=== PATIENT | female | born 1955 | race Caucasian/White ===

== ENCOUNTER 2016-07-24 07:39 | Emergency (ER) | payer MEDICAID ==
[~2016-07-24] VITALS: Ht 149.9 cm; Wt 68.0 kg
[~2016-07-24 07:39] MED LIST: ALPR1TAB2 PO; ATEN-42 PO
[2016-07-24] MEDS ORDERED: FAMOTIDINE 20MG/2ML VIAL IV STA (08:10)
[2016-07-24] MEDS ORDERED: SODIUM CHLORIDE 0.9% 1,000 ML IV ONE (08:10)
[2016-07-24] MEDS ORDERED: LORAZEPAM 2MG/ML CPJ IV ONE (08:15)
[2016-07-24 08:33] LABS: BASOPHILS % 1.1 % (0.0-2.0); EOSINOPHILS % 0.5 % (0.0-5.0); HEMATOCRIT. 39.7 % (36.0-48.0); HEMOGLOBIN. 13.6 g/dL (12.0-16.0); LYMPHOCYTES % 30.6 % (20.0-50.0); MEAN CORPUSCULAR HEMOGLOBIN 33.4 pg (28.0-32.0); MEAN CORPUSCULAR HGB CONC 34.2 g/dL (31.0-37.0); MEAN CORPUSCULAR VOLUME 97.6 fL (81.0-99.0); MEAN PLATELET VOLUME 8.4 fl (7.4-10.4); NEUTROPHILS % 56.8 % (40.0-76.0); PLATELET 109 x1000/uL (130-400); RED BLOOD CELL COUNT 4.07 mill/uL (4.2-5.4); RED CELL DISTRIBUTION WIDTH 14.8 % (11.6-14.6); WHITE BLOOD COUNT 3.1 x1000/uL (4.5-11.0)
[2016-07-24 08:39] LABS: INR 1.2; PROTHROMBIN TIME 12.4 sec
[2016-07-24 08:42] LABS: ALBUMIN 3.6 g/dL (3.4-5.0); CALCIUM 8.5 mg/dL (8.5-10.1); CHLORIDE 107 mEq/L (98-107); INDEX HEMOLYSI 1 (1-3); INDEX ICTERIC 1 (1-4); INDEX LIPEMIC 1 (1-3)
[2016-07-24 08:47] LABS: ALANINE AMINOTRANSFERASE 89 IU/L (13-61); ANION GAP 13; CARBON DIOXIDE 27 mEq/L (21-32); ETHANOL BLOOD 48 mg/dL; LIPASE 473 IU/L (73-393); UREA NITROGEN BLOOD 7 mg/dL (7-21); eGFR > 60 mL/min (>60)
[2016-07-24 08:50] LABS: NT PRO B-TYPE NATRIURETIC PEP 42 pg/mL (5-125); TROPONIN I < 0.02 ng/mL (0.00-0.04)
[2016-07-24 09:05] LABS: MAGNESIUM 2.3 mg/dL (1.8-2.4)
[2016-07-24 10:54] LABS: CLARITY URINE CLEAR (CLEAR); COLOR URINE YELLOW (YELLOW); GLUCOSE URINE NEGATIVE (NEGATIVE); KETONES URINE TRACE (NEGATIVE); LEUKOCYTE ESTERASE URINE 2+ (NEGATIVE); NITRITE URINE NEGATIVE (NEGATIVE); OCCULT BLOOD URINE TRACE (NEGATIVE); PH URINE 6.5 (4.5-8.0); PROTEIN URINE NEGATIVE (NEGATIVE); SPECIFIC GRAVITY URINE 1.015 (1.005-1.030)
[2016-07-24 11:13] LABS: *AMPHETAMINES SCREEN URINE NEGATIVE (NEGATIVE); *BARBITURATES SCREEN URINE NEGATIVE (NEGATIVE); *BENZODIAZEPINES SCREEN URINE PRESUMTIVE POSITIVE (NEGATIVE); *COCAINE SCREEN URINE PRESUMTIVE POSITIVE (NEGATIVE); CANNABINOID URINE SCREEN NEGATIVE (NEGATIVE); ECSTASY MDMA SCREEN URINE NEGATIVE (NEGATIVE); METHADONE URINE SCREEN NEGATIVE (NEGATIVE); OPIATES URINE SCREEN NEGATIVE (NEGATIVE); PHENCYCLIDINE URINE SCREEN NEGATIVE (NEGATIVE)
[2016-07-24 11:27] LABS: BACTERIA URINE NONE SEEN; RBC URINE 0-2 /hpf (0-2); SQUAMOUS EPITHELIAL CELL URINE FEW /lpf (RARE/1+)
[2016-07-24 13:50] VITALS: BP 150/73
== END 2016-07-24 14:15 | disposition home or self-care (01) ==
LOC: ER 07:50
DX: K85.10 Biliary acute pancreatitis without necrosis or infection (principal); F10.229 Alcohol dependence with intoxication, unspecified; Y90.2 Blood alcohol level of 40-59 mg/100 ml; I10 Essential (primary) hypertension; R07.89 Other chest pain; F14.229 Cocaine dependence with intoxication, unspecified; Z85.05 Personal history of malignant neoplasm of liver; Z88.0 Allergy status to penicillin; Z88.6 Allergy status to analgesic agent; Z91.041 Radiographic dye allergy status; Z88.5 Allergy status to narcotic agent; Z91.013 Allergy to seafood
CPT/HCPCS: 36415; 71010; 76705; 80053; 80305; 81001; 83690; 83735; 83880; 84484; 85025; 85610; 93005; 96361; 96374; 96375; 99285; G0482; J2060; J3490; J7030; Z7610

== ENCOUNTER 2016-07-26 06:30 | Emergency (ER) | payer MEDICAID ==
[~2016-07-26] VITALS: Ht 165.1 cm; Wt 63.0 kg
[2016-07-26] MEDS ORDERED: SODIUM CHLORIDE 0.9% 1,000 ML IV ONE (07:15)
[2016-07-26 07:41] LABS: BASOPHILS % 1.1 % (0.0-2.0); EOSINOPHILS % 0.3 % (0.0-5.0); HEMATOCRIT. 37.5 % (36.0-48.0); HEMOGLOBIN. 12.7 g/dL (12.0-16.0); LYMPHOCYTES % 27.8 % (20.0-50.0); MEAN CORPUSCULAR HEMOGLOBIN 33.3 pg (28.0-32.0); MEAN CORPUSCULAR HGB CONC 33.9 g/dL (31.0-37.0); MEAN CORPUSCULAR VOLUME 98.4 fL (81.0-99.0); MEAN PLATELET VOLUME 8.6 fl (7.4-10.4); MONOCYTES % 11.7 % (2.0-8.0); NEUTROPHILS % 59.1 % (40.0-76.0); PLATELET 97 x1000/uL (130-400); RED BLOOD CELL COUNT 3.81 mill/uL (4.2-5.4); RED CELL DISTRIBUTION WIDTH 14.8 % (11.6-14.6); WHITE BLOOD COUNT 3.1 x1000/uL (4.5-11.0)
[2016-07-26 07:46] LABS: CHLORIDE 109 mEq/L (98-107); INDEX HEMOLYSI 1 (1-3); INDEX ICTERIC 1 (1-4); INDEX LIPEMIC 1 (1-3)
[2016-07-26 07:48] LABS: INR 1.2; PARTIAL THROMBOPLASTIN TIME 26.2 sec (24.0-34.0); PROTHROMBIN TIME 12.5 sec
[2016-07-26 07:50] LABS: ALBUMIN 3.7 g/dL (3.4-5.0); ANION GAP 15; CALCIUM 8.4 mg/dL (8.5-10.1); CARBON DIOXIDE 22 mEq/L (21-32); ETHANOL BLOOD 23 mg/dL; LIPASE 419 IU/L (73-393); MAGNESIUM 2.2 mg/dL (1.8-2.4); UREA NITROGEN BLOOD 8 mg/dL (7-21)
[2016-07-26 07:55] LABS: ALANINE AMINOTRANSFERASE 91 IU/L (13-61); eGFR > 60 mL/min (>60)
[2016-07-26 07:57] LABS: TROPONIN I < 0.02 ng/mL (0.00-0.04)
[2016-07-26 08:34] LABS: *AMPHETAMINES SCREEN URINE NEGATIVE (NEGATIVE); *BARBITURATES SCREEN URINE NEGATIVE (NEGATIVE); *BENZODIAZEPINES SCREEN URINE PRESUMTIVE POSITIVE (NEGATIVE); *COCAINE SCREEN URINE PRESUMTIVE POSITIVE (NEGATIVE); ECSTASY MDMA SCREEN URINE NEGATIVE (NEGATIVE); METHADONE URINE SCREEN NEGATIVE (NEGATIVE)
[2016-07-26 08:35] LABS: CANNABINOID URINE SCREEN NEGATIVE (NEGATIVE); OPIATES URINE SCREEN NEGATIVE (NEGATIVE); PHENCYCLIDINE URINE SCREEN NEGATIVE (NEGATIVE)
[2016-07-26 09:24] VITALS: BP 144/87
== END 2016-07-26 09:58 | disposition home or self-care (01) ==
LOC: ER 06:50
DX: T40.5X1A Poisoning by cocaine, accidental (unintentional), initial encounter (principal); T51.91XA Toxic effect of unspecified alcohol, accidental (unintentional), initial encounter; G89.29 Other chronic pain; I10 Essential (primary) hypertension; F10.20 Alcohol dependence, uncomplicated; Z88.6 Allergy status to analgesic agent; Z88.0 Allergy status to penicillin; Z88.8 Allergy status to other drugs, medicaments and biological substances; Z79.1 Long term (current) use of non-steroidal anti-inflammatories (NSAID); Z79.899 Other long term (current) drug therapy; Z90.49 Acquired absence of other specified parts of digestive tract; Y92.89 Other specified places as the place of occurrence of the external cause
CPT/HCPCS: 36415; 71010; 80053; 80305; 83690; 83735; 84484; 85025; 85610; 85730; 93005; 99285; G0482; J7030; Z7610

== ENCOUNTER 2016-09-16 15:21 | Emergency (ER) | payer MEDICAID ==
[~2016-09-16] VITALS: Ht 149.9 cm; Wt 75.0 kg
[2016-09-16 15:45] VITALS: BP 148/77
== END 2016-09-17 01:15 | disposition left against medical advice (07) ==
LOC: ER 15:21
DX: Z04.8 Encounter for examination and observation for other specified reasons (principal); R11.2 Nausea with vomiting, unspecified; Z53.21 Procedure and treatment not carried out due to patient leaving prior to being seen by health care provider

== ENCOUNTER 2016-09-17 08:25 | Emergency (ER) | payer MEDICAID ==
[~2016-09-17] VITALS: Ht 149.9 cm; Wt 68.0 kg
[2016-09-17 08:37] VITALS: BP 158/61
[2016-09-17] MEDS ORDERED: ALPRAZOLAM 0.5 MG TABLET PO ONE (09:00)
== END 2016-09-17 09:46 | disposition home or self-care (01) ==
LOC: ER 09:39
DX: F41.9 Anxiety disorder, unspecified (principal); Z76.0 Encounter for issue of repeat prescription; R03.0 Elevated blood-pressure reading, without diagnosis of hypertension; F17.211 Nicotine dependence, cigarettes, in remission; Z88.8 Allergy status to other drugs, medicaments and biological substances; Z88.6 Allergy status to analgesic agent; Z91.041 Radiographic dye allergy status; Z91.013 Allergy to seafood; Z88.0 Allergy status to penicillin
CPT/HCPCS: 99283

== ENCOUNTER 2016-09-30 03:32 | Emergency (ER) | payer MEDICAID ==
[~2016-09-30] VITALS: Ht 162.6 cm; Wt 64.0 kg
[2016-09-30] MEDS ORDERED: MORPHINE SULFATE 4 MG/ML CPJ (NOT FOR IM USE) IV STA (04:49)
[2016-09-30] MEDS ORDERED: ONDANSETRON HCL 4MG/2ML VIAL IV STA (04:49)
[2016-09-30 05:13] LABS: BASOPHILS % 1.5 % (0.0-2.0); EOSINOPHILS % 0.5 % (0.0-5.0); HEMATOCRIT. 36.8 % (36.0-48.0); HEMOGLOBIN. 12.7 g/dL (12.0-16.0); LYMPHOCYTES % 34.5 % (20.0-50.0); MEAN CORPUSCULAR HEMOGLOBIN 32.9 pg (28.0-32.0); MEAN PLATELET VOLUME 8.8 fl (7.4-10.4); MONOCYTES % 9.3 % (2.0-8.0); NEUTROPHILS % 54.2 % (40.0-76.0); PLATELET 105 x1000/uL (130-400); RED BLOOD CELL COUNT 3.87 mill/uL (4.2-5.4); RED CELL DISTRIBUTION WIDTH 14.4 % (11.6-14.6)
[2016-09-30 05:24] LABS: INR 1.2; PARTIAL THROMBOPLASTIN TIME 28.3 sec (24.0-34.0); PROTHROMBIN TIME 12.7 sec
[2016-09-30] MEDS ORDERED: DIPHENHYDRAMINE 50MG/ML VIAL IV ONE (05:45)
[2016-09-30 05:47] LABS: CARBON DIOXIDE 22 mEq/L (21-32); CHLORIDE 105 mEq/L (98-107); ETHANOL BLOOD 92 mg/dL; TROPONIN I < 0.02 ng/mL (0.00-0.04)
[2016-09-30 05:51] LABS: CLARITY URINE CLEAR (CLEAR); COLOR URINE YELLOW (YELLOW); GLUCOSE URINE NEGATIVE (NEGATIVE); KETONES URINE NEGATIVE (NEGATIVE); LEUKOCYTE ESTERASE URINE NEGATIVE (NEGATIVE); NITRITE URINE NEGATIVE (NEGATIVE); OCCULT BLOOD URINE NEGATIVE (NEGATIVE); PH URINE 5.5 (4.5-8.0); PROTEIN URINE NEGATIVE (NEGATIVE); SPECIFIC GRAVITY URINE 1.004 (1.005-1.030); UROBILINOGEN URINE 0.2 E.U./dL (0.2-1.0)
[2016-09-30 05:59] LABS: *AMPHETAMINES SCREEN URINE NEGATIVE (NEGATIVE); *BARBITURATES SCREEN URINE NEGATIVE (NEGATIVE); *BENZODIAZEPINES SCREEN URINE PRESUMTIVE POSITIVE (NEGATIVE); *COCAINE SCREEN URINE PRESUMTIVE POSITIVE (NEGATIVE); CANNABINOID URINE SCREEN NEGATIVE (NEGATIVE); METHADONE URINE SCREEN NEGATIVE (NEGATIVE); OPIATES URINE SCREEN NEGATIVE (NEGATIVE); PHENCYCLIDINE URINE SCREEN NEGATIVE (NEGATIVE)
[2016-09-30 07:22] VITALS: BP 128/96
== END 2016-09-30 09:36 | disposition home or self-care (01) ==
LOC: ER 03:36
DX: T40.5X1A Poisoning by cocaine, accidental (unintentional), initial encounter (principal); F14.188 Cocaine abuse with other cocaine-induced disorder; Y92.89 Other specified places as the place of occurrence of the external cause; I10 Essential (primary) hypertension; I25.119 Atherosclerotic heart disease of native coronary artery with unspecified angina pectoris; Z95.5 Presence of coronary angioplasty implant and graft; F17.210 Nicotine dependence, cigarettes, uncomplicated; Z88.6 Allergy status to analgesic agent; Z88.8 Allergy status to other drugs, medicaments and biological substances; Z88.0 Allergy status to penicillin; Z98.890 Other specified postprocedural states; Z91.041 Radiographic dye allergy status; Z88.5 Allergy status to narcotic agent; Z91.013 Allergy to seafood
CPT/HCPCS: 36415; 71010; 80053; 80305; 81003; 83690; 83880; 84484; 85025; 85610; 85730; 93005; 96374; 96375; 99285; G0482; J1200; J2270; J2405; Z7610

== ENCOUNTER 2016-10-16 15:07 | Emergency (ER) | payer MEDICAID ==
[~2016-10-16] VITALS: Ht 149.9 cm; Wt 61.0 kg
[2016-10-16] MEDS ORDERED: LORAZEPAM 1MG TABLET PO ONE (15:45)
[2016-10-16 16:06] LABS: CHLORIDE 107 mEq/L (98-107)
[2016-10-16 16:07] LABS: BASOPHILS % 0.9 % (0.0-2.0); EOSINOPHILS % 0.6 % (0.0-5.0); HEMATOCRIT. 38.4 % (36.0-48.0); INR 1.2; LYMPHOCYTES % 43.9 % (20.0-50.0); MEAN CORPUSCULAR HEMOGLOBIN 32.8 pg (28.0-32.0); MEAN PLATELET VOLUME 9.5 fl (7.4-10.4); MONOCYTES % 9.5 % (2.0-8.0); NEUTROPHILS % 45.1 % (40.0-76.0); PLATELET 99 x1000/uL (130-400); PROTHROMBIN TIME 12.7 sec; RED BLOOD CELL COUNT 3.96 mill/uL (4.2-5.4); RED CELL DISTRIBUTION WIDTH 15.3 % (11.6-14.6)
[2016-10-16 16:16] LABS: CARBON DIOXIDE 22 mEq/L (21-32); TROPONIN I < 0.02 ng/mL (0.00-0.04)
[2016-10-16 18:50] VITALS: BP 140/65
== END 2016-10-16 19:20 | disposition left against medical advice (07) ==
LOC: ER 15:25
DX: R07.89 Other chest pain (principal); I10 Essential (primary) hypertension; G40.909 Epilepsy, unspecified, not intractable, without status epilepticus; Z88.0 Allergy status to penicillin; Z88.6 Allergy status to analgesic agent; Z91.041 Radiographic dye allergy status; Z91.013 Allergy to seafood
CPT/HCPCS: 36415; 71010; 80053; 84484; 85025; 85610; 93005; 99285; Z7610

== ENCOUNTER 2016-11-02 23:35 | Emergency (ER) | payer MEDICAID ==
[~2016-11-02] VITALS: Ht 157.5 cm; Wt 66.0 kg
[2016-11-03] MEDS ORDERED: LORAZEPAM 2MG/ML CPJ IV ONE (00:30)
[2016-11-03 00:39] LABS: BASOPHILS % 0.5 % (0.0-2.0); EOSINOPHILS % 0.5 % (0.0-5.0); HEMATOCRIT. 41.4 % (36.0-48.0); HEMOGLOBIN. 14.2 g/dL (12.0-16.0); LYMPHOCYTES % 18.9 % (20.0-50.0); MEAN CORPUSCULAR HEMOGLOBIN 33.2 pg (28.0-32.0); MEAN CORPUSCULAR VOLUME 96.5 fL (81.0-99.0); MEAN PLATELET VOLUME 9.3 fl (7.4-10.4); MONOCYTES % 10.8 % (2.0-8.0); NEUTROPHILS % 69.3 % (40.0-76.0); PLATELET 100 x1000/uL (130-400); RED BLOOD CELL COUNT 4.29 mill/uL (4.2-5.4); RED CELL DISTRIBUTION WIDTH 15.1 % (11.6-14.6)
[2016-11-03 00:51] LABS: CLARITY URINE CLEAR (CLEAR); COLOR URINE YELLOW (YELLOW); GLUCOSE URINE NEGATIVE (NEGATIVE); KETONES URINE NEGATIVE (NEGATIVE); LEUKOCYTE ESTERASE URINE NEGATIVE (NEGATIVE); NITRITE URINE NEGATIVE (NEGATIVE); OCCULT BLOOD URINE NEGATIVE (NEGATIVE); PROTEIN URINE NEGATIVE (NEGATIVE); SPECIFIC GRAVITY URINE 1.006 (1.005-1.030); UROBILINOGEN URINE 0.2 E.U./dL (0.2-1.0)
[2016-11-03 00:57] LABS: CARBON DIOXIDE 21 mEq/L (21-32); CHLORIDE 109 mEq/L (98-107); TROPONIN I < 0.02 ng/mL (0.00-0.04)
[2016-11-03 01:08] LABS: *AMPHETAMINES SCREEN URINE NEGATIVE (NEGATIVE); *BARBITURATES SCREEN URINE NEGATIVE (NEGATIVE); *BENZODIAZEPINES SCREEN URINE PRESUMTIVE POSITIVE (NEGATIVE); *COCAINE SCREEN URINE PRESUMTIVE POSITIVE (NEGATIVE); CANNABINOID URINE SCREEN NEGATIVE (NEGATIVE); METHADONE URINE SCREEN NEGATIVE (NEGATIVE); OPIATES URINE SCREEN NEGATIVE (NEGATIVE); PHENCYCLIDINE URINE SCREEN NEGATIVE (NEGATIVE)
[2016-11-03] MEDS ORDERED: ALPRAZOLAM 0.5 MG TABLET PO ONE (05:00)
[2016-11-03 05:14] VITALS: BP 138/84
== END 2016-11-03 06:37 | disposition home or self-care (01) ==
LOC: ER 23:35
DX: R07.2 Precordial pain (principal); F14.10 Cocaine abuse, uncomplicated; K85.90 Acute pancreatitis without necrosis or infection, unspecified; I10 Essential (primary) hypertension; F17.200 Nicotine dependence, unspecified, uncomplicated; Z88.0 Allergy status to penicillin; Z88.6 Allergy status to analgesic agent; Z88.8 Allergy status to other drugs, medicaments and biological substances
CPT/HCPCS: 36415; 71010; 80053; 80305; 81003; 84484; 85025; 93005; 96374; 99285; J2060; J7030; Z7610

== ENCOUNTER 2016-11-04 01:56 | Inpatient (IN) | payer MEDICAID ==
[~2016-11-04] VITALS: Ht 165.1 cm; Wt 73.0 kg
[2016-11-04] MEDS ORDERED: SODIUM CHLORIDE 0.9% 1,000 ML IV ONE ×2 (02:53→06:30)
[2016-11-04] MEDS ORDERED: NITROGLYCERIN OINT 1GM/INCH UDPKT TD ONE (03:00)
[2016-11-04] MEDS ORDERED: LABETALOL HCL 20MG/4ML CARPUJECT IV ONE (03:00)
[2016-11-04] MEDS ORDERED: LORAZEPAM 2MG/ML CPJ IV ONE (03:00)
[2016-11-04] MEDS ORDERED: ASPIRIN 81MG TABLET PO ONE (03:00)
[2016-11-04 03:34] LABS: BASOPHILS % 0.8 % (0.0-2.0); EOSINOPHILS % 0.5 % (0.0-5.0); HEMATOCRIT. 37.9 % (36.0-48.0); HEMOGLOBIN. 13.1 g/dL (12.0-16.0); LYMPHOCYTES % 36.4 % (20.0-50.0); MEAN CORPUSCULAR HEMOGLOBIN 33.2 pg (28.0-32.0); MEAN CORPUSCULAR VOLUME 96.5 fL (81.0-99.0); MEAN PLATELET VOLUME 9.4 fl (7.4-10.4); MONOCYTES % 11.4 % (2.0-8.0); NEUTROPHILS % 50.9 % (40.0-76.0); PLATELET 86 x1000/uL (130-400); RED BLOOD CELL COUNT 3.93 mill/uL (4.2-5.4); RED CELL DISTRIBUTION WIDTH 15.3 % (11.6-14.6)
[2016-11-04 03:43] LABS: CARBON DIOXIDE 23 mEq/L (21-32); CHLORIDE 109 mEq/L (98-107); ETHANOL BLOOD 16 mg/dL; TROPONIN I < 0.02 ng/mL (0.00-0.04)
[2016-11-04] MEDS ORDERED: LABETALOL 5MG/ML SYR 20 MG/4 ML SYRINGE IV NR (03:46)
[2016-11-04 03:56] LABS: CLARITY URINE CLEAR (CLEAR); COLOR URINE YELLOW (YELLOW); GLUCOSE URINE NEGATIVE (NEGATIVE); KETONES URINE NEGATIVE (NEGATIVE); LEUKOCYTE ESTERASE URINE NEGATIVE (NEGATIVE); NITRITE URINE NEGATIVE (NEGATIVE); OCCULT BLOOD URINE NEGATIVE (NEGATIVE); PH URINE 5.5 (4.5-8.0); PROTEIN URINE NEGATIVE (NEGATIVE); SPECIFIC GRAVITY URINE 1.007 (1.005-1.030)
[2016-11-04 04:02] LABS: INR 1.2; PARTIAL THROMBOPLASTIN TIME 27.4 sec (24.0-34.0); PROTHROMBIN TIME 12.7 sec
[2016-11-04 04:24] LABS: *AMPHETAMINES SCREEN URINE NEGATIVE (NEGATIVE); *BARBITURATES SCREEN URINE NEGATIVE (NEGATIVE); *BENZODIAZEPINES SCREEN URINE PRESUMTIVE POSITIVE (NEGATIVE); *COCAINE SCREEN URINE PRESUMTIVE POSITIVE (NEGATIVE); CANNABINOID URINE SCREEN NEGATIVE (NEGATIVE); METHADONE URINE SCREEN NEGATIVE (NEGATIVE); OPIATES URINE SCREEN NEGATIVE (NEGATIVE); PHENCYCLIDINE URINE SCREEN NEGATIVE (NEGATIVE)
[2016-11-04] MEDS: KETOROLAC 30MG/ML VIAL IV STA (06:30)
[2016-11-04] MEDS ORDERED: MORPHINE SULFATE 2 MG/ML CPJ (NOT FOR IM USE) IV STA ×2 (06:48→07:40)
[2016-11-04 09:00] VITALS: BP 145/85
[2016-11-04 12:35] VITALS: BP 136/87
[2016-11-04] MEDS ORDERED: ONDANSETRON HCL 4MG/2ML VIAL IV PRN (15:00)
[2016-11-04] MEDS: HYDROCODONE/ACETAMINOPHEN 5/325MG TABLET PO PRN ×2 (17:02→22:08)
[2016-11-04] MEDS ORDERED: ALPRAZOLAM 0.5 MG TABLET PO PRN (17:15)
[2016-11-04 17:20] VITALS: BP 114/72
[2016-11-04 20:00] VITALS: BP 91/55
[2016-11-04] MEDS: METOPROLOL TARTRATE 25MG TABLET PO SCH (21:00)
[2016-11-05] VITALS: BP 98/60
[2016-11-05 04:00] VITALS: BP 132/80
[2016-11-05 08:00] VITALS: BP 127/75
[2016-11-05] MEDS: METOPROLOL TARTRATE 25MG TABLET PO SCH (08:22)
[2016-11-05] MEDS: HYDROCODONE/ACETAMINOPHEN 5/325MG TABLET PO PRN (09:53)
[2016-11-05 11:36] VITALS: BP 132/89
== END 2016-11-05 12:05 | disposition home or self-care (01) | DRG 203 ==
LOC: ER 01:56 → 7WST 05:20 → EDBEDREQ 05:25 → ENRESERV 07:02
PROVIDERS: ADMIT Internal Medicine; ATTEND Internal Medicine
DX: R07.89 Other chest pain (principal); C22.0 Liver cell carcinoma; K74.60 Unspecified cirrhosis of liver; I10 Essential (primary) hypertension; K21.9 Gastro-esophageal reflux disease without esophagitis; F32.9 Major depressive disorder, single episode, unspecified; F41.9 Anxiety disorder, unspecified; R00.2 Palpitations; R74.0 Nonspecific elevation of levels of transaminase and lactic acid dehydrogenase [LDH]; B19.20 Unspecified viral hepatitis C without hepatic coma; F10.10 Alcohol abuse, uncomplicated; F14.10 Cocaine abuse, uncomplicated; F17.210 Nicotine dependence, cigarettes, uncomplicated; I16.0 Hypertensive urgency; Z82.49 Family history of ischemic heart disease and other diseases of the circulatory system; Z91.19 Patient's noncompliance with other medical treatment and regimen; Z88.0 Allergy status to penicillin; Z88.8 Allergy status to other drugs, medicaments and biological substances; Z88.6 Allergy status to analgesic agent; Z91.041 Radiographic dye allergy status; Z92.21 Personal history of antineoplastic chemotherapy; Z92.3 Personal history of irradiation
CPT/HCPCS: 36415; 71010; 80053; 80305; 81003; 83605; 83690; 83880; 84484; 85025; 85610; 85730; 93005; 93306; 96361; 96374; 96375; 99291; G0482; J1885; J2060; J2270; J3490; J7030

== ENCOUNTER 2016-11-13 00:39 | Emergency (ER) | payer MEDICAID ==
[~2016-11-13] VITALS: Ht 162.6 cm; Wt 61.0 kg
[2016-11-13] MEDS ORDERED: SODIUM CHLORIDE 0.9% 1,000 ML IV ONE (01:10)
[2016-11-13] MEDS ORDERED: ONDANSETRON HCL 4MG/2ML VIAL IV STA (01:10)
[2016-11-13] MEDS ORDERED: FENTANYL CITRATE/PF 50MCG/ML 2ML VIAL IV ONE (01:15)
[2016-11-13 01:39] LABS: BASOPHILS % 1.1 % (0.0-2.0); EOSINOPHILS % 0.7 % (0.0-5.0); HEMATOCRIT. 38.4 % (36.0-48.0); LYMPHOCYTES % 41.2 % (20.0-50.0); MEAN CORPUSCULAR HEMOGLOBIN 32.9 pg (28.0-32.0); MEAN CORPUSCULAR VOLUME 97.3 fL (81.0-99.0); MEAN PLATELET VOLUME 8.9 fl (7.4-10.4); MONOCYTES % 9.8 % (2.0-8.0); NEUTROPHILS % 47.2 % (40.0-76.0); PLATELET 114 x1000/uL (130-400); RED BLOOD CELL COUNT 3.95 mill/uL (4.2-5.4); RED CELL DISTRIBUTION WIDTH 15.2 % (11.6-14.6)
[2016-11-13 01:46] LABS: D-DIMER 0.59 mg/L FEU (<0.50); INR 1.2; PROTHROMBIN TIME 12.7 sec
[2016-11-13 01:54] LABS: CARBON DIOXIDE 23 mEq/L (21-32); CHLORIDE 107 mEq/L (98-107); ETHANOL BLOOD 83 mg/dL; TROPONIN I < 0.02 ng/mL (0.00-0.04)
[2016-11-13 06:54] VITALS: BP 128/70
== END 2016-11-13 07:31 | disposition home or self-care (01) ==
LOC: ER 00:49
DX: F14.10 Cocaine abuse, uncomplicated (principal); R07.89 Other chest pain; D72.819 Decreased white blood cell count, unspecified; D69.6 Thrombocytopenia, unspecified; R74.0 Nonspecific elevation of levels of transaminase and lactic acid dehydrogenase [LDH]; R00.0 Tachycardia, unspecified; I10 Essential (primary) hypertension; Z85.05 Personal history of malignant neoplasm of liver; Z88.6 Allergy status to analgesic agent; Z91.041 Radiographic dye allergy status; Z88.5 Allergy status to narcotic agent; Z88.0 Allergy status to penicillin; Z91.013 Allergy to seafood
CPT/HCPCS: 36415; 71010; 78582; 80053; 83880; 84484; 85025; 85379; 85610; 93005; 99285; A9540; A9558; G0482; J7030; Z7610

== ENCOUNTER 2017-01-12 00:21 | Inpatient (IN) | payer MEDICAID ==
[~2017-01-12] VITALS: Ht 149.9 cm; Wt 62.6 kg
[2017-01-12] MEDS ORDERED: ONDANSETRON HCL 4MG/2ML VIAL IV STA (01:12)
[2017-01-12] MEDS ORDERED: NITROGLYCERIN OINT 1GM/INCH UDPKT TD STA (01:12)
[2017-01-12] MEDS ORDERED: MORPHINE SULFATE 4 MG/ML CPJ (NOT FOR IM USE) IV STA (01:12)
[2017-01-12 02:15] LABS: BASOPHILS % 0.7 % (0.0-2.0); EOSINOPHILS % 0.3 % (0.0-5.0); HEMOGLOBIN. 12.6 g/dL (12.0-16.0); LYMPHOCYTES % 30.5 % (20.0-50.0); MEAN CORPUSCULAR HEMOGLOBIN 33.1 pg (28.0-32.0); MEAN CORPUSCULAR VOLUME 97.3 fL (81.0-99.0); MEAN PLATELET VOLUME 8.9 fl (7.4-10.4); MONOCYTES % 9.6 % (2.0-8.0); NEUTROPHILS % 58.9 % (40.0-76.0); PLATELET 95 x1000/uL (130-400); RED CELL DISTRIBUTION WIDTH 15.8 % (11.6-14.6)
[2017-01-12 02:25] LABS: CARBON DIOXIDE 25 mEq/L (21-32); CHLORIDE 108 mEq/L (98-107); TROPONIN I < 0.02 ng/mL (0.00-0.04)
[2017-01-12 03:29] LABS: *AMPHETAMINES SCREEN URINE NEGATIVE (NEGATIVE); *BARBITURATES SCREEN URINE NEGATIVE (NEGATIVE); *BENZODIAZEPINES SCREEN URINE PRESUMTIVE POSITIVE (NEGATIVE); CANNABINOID URINE SCREEN NEGATIVE (NEGATIVE); METHADONE URINE SCREEN NEGATIVE (NEGATIVE); OPIATES URINE SCREEN NEGATIVE (NEGATIVE); PHENCYCLIDINE URINE SCREEN NEGATIVE (NEGATIVE)
[2017-01-12 04:36] LABS: *COCAINE SCREEN URINE PRESUMTIVE POSITIVE (NEGATIVE)
[2017-01-12 06:40] VITALS: BP 139/79
[2017-01-12] MEDS ORDERED: GABA-290 PO (06:51)
[2017-01-12] MEDS ORDERED: FAMO40TA70 PO (06:51)
[2017-01-12 08:00] VITALS: BP 100/60
[2017-01-12] MEDS ORDERED: OMEP20TA15 PO (09:36)
[2017-01-12] MEDS ORDERED: DOCUSATE SODIUM 100MG CAPSULE PO PRN (10:00)
[2017-01-12] MEDS: ATENOLOL 50 MG TABLET PO SCH (10:00)
[2017-01-12] MEDS ORDERED: ACETAMINOPHEN 325MG TABLET PO PRN (10:00)
[2017-01-12] MEDS ORDERED: CLONIDINE 0.1MG TABLET PO PRN (10:00)
[2017-01-12] MEDS ORDERED: IPRATROPIUM/ALBUTEROL 0.5-3(2.5)MG/3ML NEB INH PRN (10:00)
[2017-01-12] MEDS ORDERED: ONDANSETRON HCL 4MG/2ML VIAL IV PRN (10:00)
[2017-01-12] MEDS ORDERED: HYDROCODONE/ACETAMINOPHEN 5/325MG TABLET PO PRN (10:00)
[2017-01-12] MEDS ORDERED: LORAZEPAM 1MG TABLET PO PRN (10:00)
[2017-01-12] MEDS ORDERED: ALPRAZOLAM 0.5 MG TABLET PO SCH (10:30)
[2017-01-12 12:00] VITALS: BP 98/61
[2017-01-12] MEDS ORDERED: MVI, ADULT NO.1 10 ML, FOLIC ACID 1 MG, THIAMINE HCL 100 MG in SODIUM CHLORIDE 0.9% 1,0... IV NR ×4 (12:00)
[2017-01-12] MEDS: OMEPRAZOLE 20MG CAPSULE EXTENDED RELEASE PO SCH ×2 (12:40→20:28)
[2017-01-12] MEDS: ALPRAZOLAM 0.5 MG TABLET PO SCH ×2 (13:50→22:17)
[2017-01-12 15:20] LABS: CREATINE KINASE 64 IU/L (26-192); TROPONIN I < 0.02 ng/mL (0.00-0.04)
[2017-01-12 16:00] VITALS: BP 129/81
[2017-01-12] MEDS: MORPHINE SULFATE 2 MG/ML CPJ (NOT FOR IM USE) IV PRN ×2 (16:10→22:23)
[2017-01-12] MEDS ORDERED: OMEPRAZOLE 20MG CAPSULE EXTENDED RELEASE PO SCH (17:40)
[2017-01-12 19:15] LABS: CLARITY URINE CLEAR (CLEAR); COLOR URINE DARK YELLOW (YELLOW); GLUCOSE URINE NEGATIVE (NEGATIVE); KETONES URINE NEGATIVE (NEGATIVE); LEUKOCYTE ESTERASE URINE 1+ (NEGATIVE); NITRITE URINE NEGATIVE (NEGATIVE); OCCULT BLOOD URINE NEGATIVE (NEGATIVE); PH URINE 5.5 (4.5-8.0); PROTEIN URINE NEGATIVE (NEGATIVE); SPECIFIC GRAVITY URINE 1.017 (1.005-1.030)
[2017-01-12 20:00] VITALS: BP 124/69
[2017-01-12] MEDS: FAMOTIDINE 20MG TABLET PO SCH (20:27)
[2017-01-12] MEDS: HYDROCODONE/ACETAMINOPHEN 10/325MG TABLET PO PRN (20:40)
[2017-01-12 23:30] LABS: CREATINE KINASE 61 IU/L (26-192); TROPONIN I < 0.02 ng/mL (0.00-0.04)
[2017-01-13] VITALS: BP 119/66
[2017-01-13 04:00] VITALS: BP 103/54
[2017-01-13 05:16] LABS: HEMATOCRIT. 36.1 % (36.0-48.0); HEMOGLOBIN. 12.1 g/dL (12.0-16.0); MEAN CORPUSCULAR HEMOGLOBIN 32.9 pg (28.0-32.0); MEAN CORPUSCULAR VOLUME 97.9 fL (81.0-99.0); MEAN PLATELET VOLUME 9.2 fl (7.4-10.4); PLATELET 80 x1000/uL (130-400); RED BLOOD CELL COUNT 3.69 mill/uL (4.2-5.4); RED CELL DISTRIBUTION WIDTH 15.6 % (11.6-14.6)
[2017-01-13] MEDS: ALPRAZOLAM 0.5 MG TABLET PO SCH ×3 (05:32→21:39)
[2017-01-13 06:00] LABS: CARBON DIOXIDE 26 mEq/L (21-32); CHLORIDE 109 mEq/L (98-107)
[2017-01-13 06:12] LABS: HDL CHOLESTEROL 41 mg/dL (40-59); LDL CHOLESTEROL 87 mg/dL (5-100)
[2017-01-13 08:11] VITALS: BP 127/74
[2017-01-13] MEDS: OMEPRAZOLE 20MG CAPSULE EXTENDED RELEASE PO SCH ×2 (08:47→21:38)
[2017-01-13] MEDS: ATENOLOL 50 MG TABLET PO SCH (08:47)
[2017-01-13] MEDS: HYDROCODONE/ACETAMINOPHEN 10/325MG TABLET PO PRN ×3 (08:48→21:39)
[2017-01-13 09:14] LABS: BG BASE EXCESS 1.8 mmol/L (-2.0-2.0); BG CARBOXYHEMOGLOBIN 1.4 % (0.5-1.5); BG DEOXYHEMOGLOBIN 3.2 % (0.0-5.0); BG FRACTION INSPIRED OXYGEN 21; BG HCO3 ACT 26.3 mmol/L (22.0-26.0); BG METHEMOGLOBIN 0.2 % (0.0-1.5); BG OXYGEN SATURATION 96.7 % (92.0-98.5); BG OXYHEMOGLOBIN 95.2 % (94.0-97.0); BG PH 7.425 (7.350-7.450); BG PO2 88.2 mmHg (75.0-100.0); BG SAMPLE SITE RIGHT BRACHIAL; BG TOTAL HEMOGLOBIN 15.5 g/dL (12.0-18.0); BG VENT MODE ROOM AIR
[2017-01-13 11:36] LABS: PLATELET ESTIMATE NORMAL
[2017-01-13 12:00] VITALS: BP 123/67
[2017-01-13] MEDS: MORPHINE SULFATE 2 MG/ML CPJ (NOT FOR IM USE) IV PRN ×2 (12:55→18:55)
[2017-01-13 16:00] VITALS: BP 142/63
[2017-01-13 20:00] VITALS: BP 166/49
[2017-01-13] MEDS: FAMOTIDINE 20MG TABLET PO SCH (21:38)
[2017-01-14] VITALS: BP 103/61
[2017-01-14 04:00] VITALS: BP 125/63
[2017-01-14] MEDS: ALPRAZOLAM 0.5 MG TABLET PO SCH (05:21)
[2017-01-14 05:22] VITALS: BP 125/63
[2017-01-14] MEDS: HYDROCODONE/ACETAMINOPHEN 10/325MG TABLET PO PRN (05:22)
[2017-01-14 06:25] LABS: HEMATOCRIT. 35.3 % (36.0-48.0); HEMOGLOBIN. 12.1 g/dL (12.0-16.0); MEAN CORPUSCULAR HEMOGLOBIN 33.6 pg (28.0-32.0); MEAN CORPUSCULAR VOLUME 98.5 fL (81.0-99.0); MEAN PLATELET VOLUME 9.7 fl (7.4-10.4); PLATELET 70 x1000/uL (130-400); RED BLOOD CELL COUNT 3.59 mill/uL (4.2-5.4); RED CELL DISTRIBUTION WIDTH 15.6 % (11.6-14.6)
[2017-01-14 06:54] LABS: CARBON DIOXIDE 25 mEq/L (21-32); CHLORIDE 105 mEq/L (98-107)
[2017-01-14] MEDS: OMEPRAZOLE 20MG CAPSULE EXTENDED RELEASE PO SCH (08:11)
[2017-01-14 14:31] LABS: PLATELET ESTIMATE DECREASED
== END 2017-01-14 08:30 | disposition left against medical advice (07) | DRG 816 ==
LOC: ER 00:21 → EDBEDREQ 04:19 → EDBEDREQTM 04:19 → ENRESERV 04:42 → 7WST 08:09
PROVIDERS: ADMIT Internal Medicine; ATTEND Internal Medicine
DX: T40.5X1A Poisoning by cocaine, accidental (unintentional), initial encounter (principal); K85.90 Acute pancreatitis without necrosis or infection, unspecified; K86.1 Other chronic pancreatitis; R07.89 Other chest pain; F17.210 Nicotine dependence, cigarettes, uncomplicated; F10.10 Alcohol abuse, uncomplicated; Z53.21 Procedure and treatment not carried out due to patient leaving prior to being seen by health care provider; Z86.010 Personal history of colon polyps; Z91.19 Patient's noncompliance with other medical treatment and regimen; Z82.49 Family history of ischemic heart disease and other diseases of the circulatory system; Z85.05 Personal history of malignant neoplasm of liver; Z86.711 Personal history of pulmonary embolism; Z86.19 Personal history of other infectious and parasitic diseases; Z88.8 Allergy status to other drugs, medicaments and biological substances; Z88.6 Allergy status to analgesic agent; Z91.041 Radiographic dye allergy status; Z88.0 Allergy status to penicillin; Z91.013 Allergy to seafood; Z79.899 Other long term (current) drug therapy; Z85.89 Personal history of malignant neoplasm of other organs and systems
CPT/HCPCS: 36415; 36600; 71010; 76700; 80048; 80053; 80061; 80305; 81001; 82248; 82375; 82550; 82805; 83690; 84443; 84484; 85025; 93005; 93970; 96374; 96375; 99285; J2270; J2405; J3411; J3490; J7030

== ENCOUNTER 2017-05-29 10:59 | Emergency (ER) | payer MEDICAID ==
[~2017-05-29 10:59] MED LIST changes: +FAMO40TA70 PO; +OMEP20TA15 PO
== END 2017-05-29 12:14 | disposition left against medical advice (07) ==
LOC: ER 12:10
DX: M54.9 Dorsalgia, unspecified (principal); Z53.21 Procedure and treatment not carried out due to patient leaving prior to being seen by health care provider

== ENCOUNTER 2017-11-10 01:01 | Observation (INO) | payer MEDICAID ==
[~2017-11-10] VITALS: Ht 149.9 cm; Wt 71.2 kg
[2017-11-10] MEDS ORDERED: ONDANSETRON HCL 4MG/2ML VIAL IV STA (01:22)
[2017-11-10] MEDS ORDERED: MORPHINE SULFATE 4 MG/ML CPJ (NOT FOR IM USE) IV STA (01:22)
[2017-11-10] MEDS ORDERED: LORAZEPAM 2MG/ML CPJ IV ONE (01:30)
[2017-11-10 02:29] LABS: BASOPHILS % 1.1 % (0.0-2.0); CHLORIDE 103 mEq/L (98-107); EOSINOPHILS % 5.2 % (0.0-5.0); HEMOGLOBIN. 13.4 g/dL (12.0-16.0); LYMPHOCYTES % 30.3 % (20.0-50.0); MEAN CORPUSCULAR HEMOGLOBIN 34.3 pg (28.0-32.0); MEAN PLATELET VOLUME 9.4 fl (7.4-10.4); MONOCYTES % 10.7 % (2.0-8.0); NEUTROPHILS % 52.7 % (40.0-76.0); PLATELET 89 x1000/uL (130-400); RED CELL DISTRIBUTION WIDTH 14.7 % (11.6-14.6)
[2017-11-10] MEDS ORDERED: DIPHENHYDRAMINE 25MG CAPSULE PO ONE (02:30)
[2017-11-10 02:33] LABS: INR 1.2; PARTIAL THROMBOPLASTIN TIME 27.8 sec (23.4-31.0); PROTHROMBIN TIME 12.6 sec (9.4-11.6)
[2017-11-10 03:16] LABS: CLARITY URINE CLEAR (CLEAR); COLOR URINE YELLOW (YELLOW); KETONES URINE NEGATIVE (NEGATIVE); LEUKOCYTE ESTERASE URINE NEGATIVE (NEGATIVE); NITRITE URINE NEGATIVE (NEGATIVE); OCCULT BLOOD URINE NEGATIVE (NEGATIVE); PROTEIN URINE NEGATIVE (NEGATIVE); SPECIFIC GRAVITY URINE 1.005 (1.005-1.030); UROBILINOGEN URINE 0.2 E.U./dL (0.2-1.0)
[2017-11-10 03:41] LABS: *AMPHETAMINES SCREEN URINE NEGATIVE (NEGATIVE); *BARBITURATES SCREEN URINE NEGATIVE (NEGATIVE); *BENZODIAZEPINES SCREEN URINE PRESUMTIVE POSITIVE (NEGATIVE); *COCAINE SCREEN URINE PRESUMTIVE POSITIVE (NEGATIVE); METHADONE URINE SCREEN NEGATIVE (NEGATIVE)
[2017-11-10 03:42] LABS: CANNABINOID URINE SCREEN NEGATIVE (NEGATIVE); OPIATES URINE SCREEN NEGATIVE (NEGATIVE); PHENCYCLIDINE URINE SCREEN NEGATIVE (NEGATIVE)
[2017-11-10 09:23] VITALS: BP 120/67
[2017-11-10] MEDS ORDERED: BUSP30TA2 PO (09:33)
[2017-11-10] MEDS ORDERED: PHEN50TA PO (09:34)
[2017-11-10 10:00] VITALS: BP 120/67
[2017-11-10] MEDS ORDERED: MORPHINE SULFATE 2 MG/ML CPJ (NOT FOR IM USE) IV PRN (10:00)
[2017-11-10] MEDS: MORPHINE SULFATE 4 MG/ML CPJ (NOT FOR IM USE) IV PRN ×2 (11:40→19:52)
[2017-11-10 12:00] VITALS: BP 98/55
[2017-11-10] MEDS ORDERED: CLONIDINE 0.1MG TABLET PO SCH (12:00)
[2017-11-10] MEDS: DIPHENHYDRAMINE 50MG/ML VIAL IV PRN ×2 (12:07→20:05)
[2017-11-10] MEDS: ALPRAZOLAM 0.5 MG TABLET PO SCH ×2 (13:02→22:21)
[2017-11-10] MEDS ORDERED: CLONIDINE 0.1MG TABLET PO PRN (14:15)
[2017-11-10 15:38] LABS: CREATINE KINASE 95 IU/L (26-192)
[2017-11-10 15:39] LABS: CREATINE KINASE MB FRACTION 1.1 ng/mL (0.5-3.6)
[2017-11-10] MEDS: BUSPIRONE HCL 10MG TABLET PO SCH (16:56)
[2017-11-10 20:00] VITALS: BP 112/69
[2017-11-10 23:35] LABS: CREATINE KINASE 73 IU/L (26-192)
[2017-11-10 23:36] LABS: CREATINE KINASE MB FRACTION 0.6 ng/mL (0.5-3.6)
[2017-11-11] VITALS: BP 107/67
[2017-11-11 04:00] VITALS: BP 92/52
[2017-11-11] MEDS: ALPRAZOLAM 0.5 MG TABLET PO SCH ×2 (05:43→13:17)
[2017-11-11 07:59] VITALS: BP 102/69
[2017-11-11] MEDS: BUSPIRONE HCL 10MG TABLET PO SCH ×2 (08:44→16:37)
[2017-11-11 10:45] LABS: CHLORIDE 105 mEq/L (98-107)
[2017-11-11 11:05] LABS: CREATINE KINASE 64 IU/L (26-192); CREATINE KINASE MB FRACTION < 0.5 ng/mL (0.5-3.6)
[2017-11-11] MEDS: DIPHENHYDRAMINE 50MG/ML VIAL IV PRN (11:06)
[2017-11-11] MEDS: MORPHINE SULFATE 4 MG/ML CPJ (NOT FOR IM USE) IV PRN (11:07)
[2017-11-11 12:00] VITALS: BP 100/59
[2017-11-11 13:37] VITALS: BP 100/59
== END 2017-11-11 17:21 | disposition home or self-care (01) ==
LOC: ER 01:01 → INTOOBSV 03:48 → 7WST 03:48 → EDBEDREQTM 03:50 → EDBEDREQ 03:50 → ENRESERV 07:24 → 7WST 09:15
PROVIDERS: ADMIT Internal Medicine; ATTEND Internal Medicine
DX: R07.89 Other chest pain (principal); F41.9 Anxiety disorder, unspecified; D72.819 Decreased white blood cell count, unspecified; I10 Essential (primary) hypertension; G40.909 Epilepsy, unspecified, not intractable, without status epilepticus; B18.2 Chronic viral hepatitis C; K76.0 Fatty (change of) liver, not elsewhere classified; D69.59 Other secondary thrombocytopenia; D64.9 Anemia, unspecified; T40.5X1A Poisoning by cocaine, accidental (unintentional), initial encounter; K86.1 Other chronic pancreatitis; Z85.05 Personal history of malignant neoplasm of liver; Z85.07 Personal history of malignant neoplasm of pancreas; Z82.49 Family history of ischemic heart disease and other diseases of the circulatory system
CPT/HCPCS: 36415; 71045; 76705; 80053; 80305; 81003; 82550; 82553; 83880; 84484; 85025; 85610; 85730; 86850; 86900; 86901; 93005; 93306; 96374; 96375; 96376; 99285; G0378; J1200; J2060; J2270; J2405; Q0163

== ENCOUNTER 2018-01-14 15:23 | Emergency (ER) | payer MEDICAID ==
[~2018-01-14] VITALS: Ht 162.6 cm; Wt 60.0 kg
[~2018-01-14 15:23] MED LIST changes: +BUSP30TA2 PO; -FAMO40TA70 PO; -OMEP20TA15 PO
[2018-01-14] MEDS ORDERED: METOCLOPRAMIDE HCL 10MG/2ML VIAL IV ONE (16:15)
[2018-01-14] MEDS ORDERED: ACETAMINOPHEN 325MG TABLET PO ONE (16:30)
[2018-01-14 17:11] LABS: BASOPHILS % 0.9 % (0.0-2.0); HEMATOCRIT. 38.2 % (36.0-48.0); HEMOGLOBIN. 13.3 g/dL (12.0-16.0); LYMPHOCYTES % 30.8 % (20.0-50.0); MEAN CORPUSCULAR HEMOGLOBIN 34.8 pg (28.0-32.0); MEAN CORPUSCULAR VOLUME 100.1 fL (81.0-99.0); MEAN PLATELET VOLUME 9.2 fl (7.4-10.4); MONOCYTES % 14.2 % (2.0-8.0); NEUTROPHILS % 53.1 % (40.0-76.0); PLATELET 80 x1000/uL (130-400); RED BLOOD CELL COUNT 3.81 mill/uL (4.2-5.4); RED CELL DISTRIBUTION WIDTH 15.1 % (11.6-14.6)
[2018-01-14 17:15] LABS: CHLORIDE 106 mEq/L (98-107)
[2018-01-14 17:20] LABS: D-DIMER 0.79 mg/L FEU (<0.50); INR 1.3; PROTHROMBIN TIME 12.7 sec (9.1-11.1)
[2018-01-14 19:08] LABS: CLARITY URINE CLEAR (CLEAR); COLOR URINE YELLOW (YELLOW); KETONES URINE TRACE (NEGATIVE); LEUKOCYTE ESTERASE URINE NEGATIVE (NEGATIVE); NITRITE URINE NEGATIVE (NEGATIVE); OCCULT BLOOD URINE NEGATIVE (NEGATIVE); PH URINE 6.5 (4.5-8.0); PROTEIN URINE NEGATIVE (NEGATIVE); SPECIFIC GRAVITY URINE 1.011 (1.005-1.030)
[2018-01-14 19:25] LABS: *AMPHETAMINES SCREEN URINE PRESUMTIVE POSITIVE (NEGATIVE); *BARBITURATES SCREEN URINE NEGATIVE (NEGATIVE)
[2018-01-14 19:26] LABS: *BENZODIAZEPINES SCREEN URINE PRESUMTIVE POSITIVE (NEGATIVE); *COCAINE SCREEN URINE PRESUMTIVE POSITIVE (NEGATIVE); METHADONE URINE SCREEN NEGATIVE (NEGATIVE); OPIATES URINE SCREEN NEGATIVE (NEGATIVE); PHENCYCLIDINE URINE SCREEN NEGATIVE (NEGATIVE)
[2018-01-14 19:27] LABS: CANNABINOID URINE SCREEN NEGATIVE (NEGATIVE)
[2018-01-14] MEDS ORDERED: SODIUM CHLORIDE 0.9% 500 ML IV ONE (19:45)
[2018-01-14] MEDS ORDERED: MORPHINE SULFATE 10 MG/ML CPJ IV ONE (19:45)
[2018-01-14] MEDS ORDERED: IOHEXOL-350 100 ML BOTTLE ONE (21:12)
[2018-01-14 22:39] VITALS: BP 160/89
== END 2018-01-14 22:35 | disposition home or self-care (01) ==
LOC: ER 15:23
DX: R07.89 Other chest pain (principal); R51 Headache; R11.0 Nausea; I10 Essential (primary) hypertension; F14.10 Cocaine abuse, uncomplicated; F15.10 Other stimulant abuse, uncomplicated; Z88.8 Allergy status to other drugs, medicaments and biological substances; Z88.6 Allergy status to analgesic agent; Z88.0 Allergy status to penicillin; Z91.041 Radiographic dye allergy status; Z91.013 Allergy to seafood; Z98.890 Other specified postprocedural states
CPT/HCPCS: 36415; 71045; 71275; 80053; 80305; 81003; 83690; 84484; 85025; 85379; 85610; 93005; 96374; 96375; 99285; J2270; J2765; J7040; Q9967; Z7610

== ENCOUNTER 2018-07-01 02:41 | Emergency (ER) | payer MEDICAID ==
[~2018-07-01] VITALS: Ht 160 cm; Wt 60.0 kg
[2018-07-01] MEDS ORDERED: LORAZEPAM 2MG/ML CPJ IV ONE (03:15)
[2018-07-01 03:51] LABS: EOSINOPHILS % 0.5 % (0.0-5.0); HEMATOCRIT. 39.9 % (36.0-48.0); HEMOGLOBIN. 13.5 g/dL (12.0-16.0); LYMPHOCYTES % 22.6 % (20.0-50.0); MEAN CORPUSCULAR HEMOGLOBIN 34.9 pg (28.0-32.0); MEAN CORPUSCULAR VOLUME 103.5 fL (81.0-99.0); MEAN PLATELET VOLUME 9.9 fl (7.4-10.4); MONOCYTES % 12.4 % (2.0-8.0); NEUTROPHILS % 63.5 % (40.0-76.0); PLATELET 88 x1000/uL (130-400); RED BLOOD CELL COUNT 3.86 mill/uL (4.2-5.4); RED CELL DISTRIBUTION WIDTH 15.5 % (11.6-14.6)
[2018-07-01 03:52] LABS: CHLORIDE 107 mEq/L (98-107)
[2018-07-01 06:50] VITALS: BP 137/67
== END 2018-07-01 07:16 | disposition home or self-care (01) ==
LOC: ER 02:41
DX: T43.621A Poisoning by amphetamines, accidental (unintentional), initial encounter (principal); R00.0 Tachycardia, unspecified; F17.200 Nicotine dependence, unspecified, uncomplicated; K76.9 Liver disease, unspecified; Z88.0 Allergy status to penicillin; Z88.6 Allergy status to analgesic agent; Z88.8 Allergy status to other drugs, medicaments and biological substances; Z79.82 Long term (current) use of aspirin; Z91.041 Radiographic dye allergy status; Z91.013 Allergy to seafood; Z79.899 Other long term (current) drug therapy; Y92.89 Other specified places as the place of occurrence of the external cause
CPT/HCPCS: 36415; 71045; 80053; 84484; 85025; 93005; 96374; 99284; J2060; Z7610

== ENCOUNTER 2018-08-23 03:44 | Emergency (ER) | payer MEDICAID ==
[~2018-08-23] VITALS: Ht 152.4 cm; Wt 73.0 kg
[2018-08-23 05:01] LABS: BASOPHILS % 0.7 % (0.0-2.0); EOSINOPHILS % 0.5 % (0.0-5.0); HEMATOCRIT. 37.2 % (36.0-48.0); HEMOGLOBIN. 12.8 g/dL (12.0-16.0); LYMPHOCYTES % 19.5 % (20.0-50.0); MEAN CORPUSCULAR HEMOGLOBIN 35.1 pg (28.0-32.0); MEAN CORPUSCULAR VOLUME 102.1 fL (81.0-99.0); MEAN PLATELET VOLUME 9.2 fl (7.4-10.4); MONOCYTES % 11.1 % (2.0-8.0); NEUTROPHILS % 68.2 % (40.0-76.0); PLATELET 78 x1000/uL (130-400); RED BLOOD CELL COUNT 3.64 mill/uL (4.2-5.4); RED CELL DISTRIBUTION WIDTH 15.8 % (11.6-14.6)
[2018-08-23 05:08] LABS: CHLORIDE 107 mEq/L (98-107)
[2018-08-23] MEDS ORDERED: LORAZEPAM 2MG/ML CPJ IV ONE ×2 (06:30→10:45)
[2018-08-23] MEDS ORDERED: SODIUM CHLORIDE 0.9% 1,000 ML IV ONE (06:30)
[2018-08-23] MEDS ORDERED: ASPIRIN 325MG TABLET PO ONE (06:30)
[2018-08-23] MEDS ORDERED: FAMOTIDINE 20MG TABLET PO ONE (06:30)
[2018-08-23] MEDS ORDERED: MAGNESIUM/ALUMINUM HYDROXIDE/SIMETHICONE 30ML UDC PO ONE (06:45)
[2018-08-23] MEDS ORDERED: VISCOUS LIDOCAINE 2% 15 ML UDC PO ONE (06:45)
[2018-08-23] MEDS ORDERED: KETOROLAC 15MG/ML VIAL IV ONE (10:45)
[2018-08-23 10:53] VITALS: BP 129/59
== END 2018-08-23 11:12 | disposition home or self-care (01) ==
LOC: ER 03:44
DX: K80.50 Calculus of bile duct without cholangitis or cholecystitis without obstruction (principal); R07.89 Other chest pain; F15.10 Other stimulant abuse, uncomplicated; R16.0 Hepatomegaly, not elsewhere classified
CPT/HCPCS: 36415; 71045; 76705; 80053; 83880; 84484; 85025; 93005; 96374; 96375; 96376; 99284; J1885; J2060; J7030; Z7610

== ENCOUNTER 2018-09-01 10:00 | Inpatient (IN) | payer MEDICAID ==
[~2018-09-01] VITALS: Ht 170.2 cm; Wt 66.7 kg
[2018-09-01] MEDS ORDERED: MORPHINE SULFATE 4 MG/ML CPJ (NOT FOR IM USE) IV STA (10:33)
[2018-09-01 11:08] LABS: BASOPHILS % 1.2 % (0.0-2.0); EOSINOPHILS % 0.9 % (0.0-5.0); HEMATOCRIT. 39.1 % (36.0-48.0); HEMOGLOBIN. 13.6 g/dL (12.0-16.0); LYMPHOCYTES % 28.3 % (20.0-50.0); MEAN CORPUSCULAR HEMOGLOBIN 35.3 pg (28.0-32.0); MEAN CORPUSCULAR VOLUME 101.8 fL (81.0-99.0); MEAN PLATELET VOLUME 9.1 fl (7.4-10.4); MONOCYTES % 12.2 % (2.0-8.0); NEUTROPHILS % 57.4 % (40.0-76.0); PLATELET 90 x1000/uL (130-400); RED BLOOD CELL COUNT 3.84 mill/uL (4.2-5.4); RED CELL DISTRIBUTION WIDTH 15.8 % (11.6-14.6)
[2018-09-01 11:10] LABS: INR 1.3; PROTHROMBIN TIME 12.9 sec (9.6-11.0)
[2018-09-01 11:30] LABS: CHLORIDE 107 mEq/L (98-107)
[2018-09-01 12:13] LABS: CLARITY URINE CLEAR (CLEAR); COLOR URINE AMBER (YELLOW); KETONES URINE TRACE (NEGATIVE); LEUKOCYTE ESTERASE URINE 1+ (NEGATIVE); NITRITE URINE NEGATIVE (NEGATIVE); OCCULT BLOOD URINE NEGATIVE (NEGATIVE); PROTEIN URINE NEGATIVE (NEGATIVE); UROBILINOGEN URINE 0.2 E.U./dL (0.2-1.0)
[2018-09-01] MEDS ORDERED: KETOROLAC 30MG/ML VIAL IV ONE (12:15)
[2018-09-01] MEDS ORDERED: SODIUM CHLORIDE 0.9% 1,000 ML IV SCH (12:39)
[2018-09-01] MEDS ORDERED: DIPHENHYDRAMINE 50MG/ML VIAL IV PRN (12:45)
[2018-09-01] MEDS ORDERED: MAGNESIUM/ALUMINUM HYDROXIDE/SIMETHICONE 30ML UDC PO PRN (12:45)
[2018-09-01] MEDS ORDERED: ONDANSETRON HCL 4MG/2ML INJ IV PRN (12:45)
[2018-09-01] MEDS ORDERED: ENOXAPARIN 40MG/0.4ML SYR SUBCUT SCH (12:45)
[2018-09-01] MEDS ORDERED: CLONIDINE 0.1MG TABLET PO PRN (12:45)
[2018-09-01] MEDS ORDERED: DOCUSATE SODIUM 100MG CAPSULE PO PRN (12:45)
[2018-09-01] MEDS ORDERED: IPRATROPIUM/ALBUTEROL 0.5-3(2.5)MG/3ML NEB INH PRN (12:45)
[2018-09-01 13:37] LABS: PHOSPHORUS 3.4 mg/dL (2.5-4.9)
[2018-09-01] MEDS: DEXT 5%/0.45% NACL 1000ML 1,000 ML IV SCH (16:49)
[2018-09-01] MEDS: HYDROMORPHONE HCL/PF 2MG/ML CPJ IV PRN ×2 (17:47→22:19)
[2018-09-01 17:59] VITALS: BP 153/65
[2018-09-01 20:00] VITALS: BP 156/86
[2018-09-01] MEDS ORDERED: ALPRAZOLAM 0.5 MG TABLET PO PRN (21:00)
[2018-09-01] MEDS: ALPRAZOLAM 0.5 MG TABLET PO SCH (22:11)
[2018-09-02] VITALS: BP 142/82
[2018-09-02] MEDS: HYDROMORPHONE HCL/PF 2MG/ML CPJ IV PRN ×2 (02:22→10:29)
[2018-09-02 03:42] VITALS: BP 114/76
[2018-09-02 07:01] LABS: HEMATOCRIT. 37.9 % (36.0-48.0); HEMOGLOBIN. 12.8 g/dL (12.0-16.0); MEAN CORPUSCULAR HEMOGLOBIN 35.2 pg (28.0-32.0); MEAN CORPUSCULAR VOLUME 104.1 fL (81.0-99.0); MEAN PLATELET VOLUME 9.1 fl (7.4-10.4); PLATELET 78 x1000/uL (130-400); RED BLOOD CELL COUNT 3.64 mill/uL (4.2-5.4); RED CELL DISTRIBUTION WIDTH 16.2 % (11.6-14.6)
[2018-09-02 07:32] LABS: CHLORIDE 106 mEq/L (98-107)
[2018-09-02 07:40] LABS: LDL CHOLESTEROL 85 mg/dL (5-100)
[2018-09-02 07:42] LABS: HDL CHOLESTEROL 31 mg/dL (40-59)
[2018-09-02 08:00] VITALS: BP 134/82
[2018-09-02] MEDS: ALPRAZOLAM 0.5 MG TABLET PO SCH ×2 (08:29→21:46)
[2018-09-02] MEDS: KETOROLAC 30MG/ML VIAL IV PRN ×2 (08:29→18:18)
[2018-09-02] MEDS: PANTOPRAZOLE SODIUM 40 MG/VIAL IV SCH (08:29)
[2018-09-02 12:00] VITALS: BP 126/75
[2018-09-02] MEDS: DEXT 5%/0.45% NACL 1000ML 1,000 ML IV SCH (13:37)
[2018-09-02] MEDS: MORPHINE SULFATE 4 MG/ML CPJ (NOT FOR IM USE) IV PRN ×2 (14:56→21:48)
[2018-09-02 16:00] VITALS: BP 142/79
[2018-09-02 17:32] LABS: PLATELET ESTIMATE DECREASED
[2018-09-02 20:00] VITALS: BP 149/74
[2018-09-03] VITALS: BP 132/72
[2018-09-03 04:00] VITALS: BP 116/64
[2018-09-03 08:00] VITALS: BP 144/73
[2018-09-03] MEDS: DEXT 5%/0.45% NACL 1000ML 1,000 ML IV SCH ×2 (08:49→18:50)
[2018-09-03] MEDS: PANTOPRAZOLE SODIUM 40 MG/VIAL IV SCH (10:26)
[2018-09-03] MEDS: HYDROMORPHONE HCL/PF 2MG/ML CPJ IV PRN ×2 (10:27→15:31)
[2018-09-03] MEDS: ALPRAZOLAM 0.5 MG TABLET PO SCH ×2 (10:27→20:47)
[2018-09-03 11:41] VITALS: BP 146/77
[2018-09-03 16:00] VITALS: BP 131/77
[2018-09-03 20:00] VITALS: BP 150/83
[2018-09-03] MEDS: MORPHINE SULFATE 4 MG/ML CPJ (NOT FOR IM USE) IV PRN (20:28)
[2018-09-04] VITALS: BP 109/65
[2018-09-04 04:00] VITALS: BP 115/53
[2018-09-04] MEDS: MORPHINE SULFATE 4 MG/ML CPJ (NOT FOR IM USE) IV PRN ×4 (05:15→20:56)
[2018-09-04 06:57] LABS: HEMATOCRIT. 34.7 % (36.0-48.0); HEMOGLOBIN. 11.8 g/dL (12.0-16.0); MEAN CORPUSCULAR HEMOGLOBIN 35.2 pg (28.0-32.0); MEAN CORPUSCULAR VOLUME 103.5 fL (81.0-99.0); MEAN PLATELET VOLUME 9.1 fl (7.4-10.4); PLATELET 70 x1000/uL (130-400); RED BLOOD CELL COUNT 3.36 mill/uL (4.2-5.4); RED CELL DISTRIBUTION WIDTH 15.4 % (11.6-14.6)
[2018-09-04 07:09] LABS: CHLORIDE 107 mEq/L (98-107)
[2018-09-04 08:00] VITALS: BP 112/63
[2018-09-04 08:28] LABS: PLATELET ESTIMATE DECREASED
[2018-09-04] MEDS: PANTOPRAZOLE SODIUM 40 MG/VIAL IV SCH (09:21)
[2018-09-04] MEDS: ALPRAZOLAM 0.5 MG TABLET PO SCH ×2 (09:22→20:41)
[2018-09-04] MEDS ORDERED: LORAZEPAM 2MG/ML CPJ IV PRN ×2 (10:00→14:00)
[2018-09-04 12:09] VITALS: BP 124/73
[2018-09-04] MEDS ORDERED: SORBITOL 70% SOLN 30ML PO PRN (13:45)
[2018-09-04] MEDS ORDERED: BISACODYL 10MG SUPP PR NR (13:45)
[2018-09-04 15:39] VITALS: BP 143/64
[2018-09-04] MEDS: DOCUSATE SODIUM 100MG CAPSULE PO SCH (17:09)
[2018-09-04 20:32] VITALS: BP 126/61
[2018-09-04] MEDS: DEXT 5%/0.45% NACL 1000ML 1,000 ML IV SCH (20:57)
[2018-09-05] VITALS: BP 130/65
[2018-09-05] MEDS: MORPHINE SULFATE 4 MG/ML CPJ (NOT FOR IM USE) IV PRN ×4 (01:35→13:16)
[2018-09-05 04:00] VITALS: BP 102/60
[2018-09-05 06:12] LABS: BASOPHILS % 1.1 % (0.0-2.0); EOSINOPHILS % 3.1 % (0.0-5.0); HEMATOCRIT. 35.9 % (36.0-48.0); HEMOGLOBIN. 12.4 g/dL (12.0-16.0); LYMPHOCYTES % 31.9 % (20.0-50.0); MEAN CORPUSCULAR HEMOGLOBIN 35.6 pg (28.0-32.0); MEAN CORPUSCULAR VOLUME 103.5 fL (81.0-99.0); MEAN PLATELET VOLUME 9.3 fl (7.4-10.4); MONOCYTES % 10.5 % (2.0-8.0); NEUTROPHILS % 53.4 % (40.0-76.0); PLATELET 80 x1000/uL (130-400); RED BLOOD CELL COUNT 3.47 mill/uL (4.2-5.4); RED CELL DISTRIBUTION WIDTH 15.6 % (11.6-14.6)
[2018-09-05 06:42] LABS: CHLORIDE 109 mEq/L (98-107)
[2018-09-05 06:56] LABS: T4 FREE 1.32 ng/dL (0.76-1.46)
[2018-09-05] MEDS ORDERED: LORAZEPAM 2MG/ML CPJ IV PRN (07:45)
[2018-09-05 08:00] VITALS: BP 108/57
[2018-09-05] MEDS: DOCUSATE SODIUM 100MG CAPSULE PO SCH ×2 (09:29→17:21)
[2018-09-05] MEDS: PANTOPRAZOLE SODIUM 40 MG/VIAL IV SCH (09:29)
[2018-09-05] MEDS: ALPRAZOLAM 0.5 MG TABLET PO SCH ×2 (09:29→21:03)
[2018-09-05] MEDS: DEXT 5%/0.45% NACL 1000ML 1,000 ML IV SCH (09:30)
[2018-09-05 12:12] VITALS: BP 93/60
[2018-09-05] MEDS ORDERED: SORBITOL 70% SOLN 30ML PO SCH (16:15)
[2018-09-05 16:21] VITALS: BP 96/50
[2018-09-05] MEDS: HYDROCODONE/ACETAMINOPHEN 5/325MG TABLET PO PRN (17:22)
[2018-09-05] MEDS ORDERED: MINERAL OIL ENEMA 133ML PR SCH (18:00)
[2018-09-05 20:00] VITALS: BP 100/56
[2018-09-06 00:03] VITALS: BP 112/63
[2018-09-06 04:01] VITALS: BP 106/64
[2018-09-06] MEDS: HYDROCODONE/ACETAMINOPHEN 5/325MG TABLET PO PRN ×2 (06:30→20:07)
[2018-09-06 07:02] LABS: BASOPHILS % 1.2 % (0.0-2.0); EOSINOPHILS % 3.1 % (0.0-5.0); HEMATOCRIT. 36.9 % (36.0-48.0); HEMOGLOBIN. 12.6 g/dL (12.0-16.0); LYMPHOCYTES % 30.4 % (20.0-50.0); MEAN CORPUSCULAR HEMOGLOBIN 35.5 pg (28.0-32.0); MEAN CORPUSCULAR VOLUME 103.9 fL (81.0-99.0); MEAN PLATELET VOLUME 9.7 fl (7.4-10.4); MONOCYTES % 14.3 % (2.0-8.0); PLATELET 61 x1000/uL (130-400); RED BLOOD CELL COUNT 3.55 mill/uL (4.2-5.4); RED CELL DISTRIBUTION WIDTH 15.6 % (11.6-14.6)
[2018-09-06 07:21] LABS: CHLORIDE 110 mEq/L (98-107)
[2018-09-06 08:00] VITALS: BP_SYST 116; BP_SYST 121; BP_DIAS 59; BP_DIAS 84
[2018-09-06] MEDS: PANTOPRAZOLE SODIUM 40 MG/VIAL IV SCH (09:08)
[2018-09-06] MEDS: DOCUSATE SODIUM 100MG CAPSULE PO SCH ×2 (09:09→16:01)
[2018-09-06] MEDS: ALPRAZOLAM 0.5 MG TABLET PO SCH ×2 (09:09→21:00)
[2018-09-06] MEDS ORDERED: POTASSIUM CHLORIDE 20MEQ TABLET SR PO NR (09:45)
[2018-09-06 12:00] VITALS: BP 120/73
[2018-09-06 16:00] VITALS: BP 105/58
[2018-09-06 20:00] VITALS: BP 116/59
[2018-09-07] VITALS: BP 110/62
[2018-09-07 04:00] VITALS: BP 125/69
[2018-09-07] MEDS: HYDROCODONE/ACETAMINOPHEN 5/325MG TABLET PO PRN (06:50)
[2018-09-07 06:58] VITALS: BP 100/52
[2018-09-07 07:51] LABS: HEMATOCRIT. 38.2 % (36.0-48.0); HEMOGLOBIN. 12.8 g/dL (12.0-16.0); MEAN CORPUSCULAR HEMOGLOBIN 34.9 pg (28.0-32.0); MEAN CORPUSCULAR VOLUME 104.1 fL (81.0-99.0); MEAN PLATELET VOLUME 9.8 fl (7.4-10.4); PLATELET 65 x1000/uL (130-400); RED BLOOD CELL COUNT 3.67 mill/uL (4.2-5.4); RED CELL DISTRIBUTION WIDTH 15.6 % (11.6-14.6)
[2018-09-07 08:00] VITALS: BP 119/66
[2018-09-07 08:02] LABS: CHLORIDE 110 mEq/L (98-107)
[2018-09-07] MEDS: DOCUSATE SODIUM 100MG CAPSULE PO SCH (08:07)
[2018-09-07] MEDS: PANTOPRAZOLE SODIUM 40 MG/VIAL IV SCH (09:00)
[2018-09-07] MEDS: ALPRAZOLAM 0.5 MG TABLET PO SCH (09:23)
[2018-09-07 12:00] VITALS: BP 137/74
[2018-09-08 01:50] LABS: PLATELET ESTIMATE DECREASED
== END 2018-09-07 15:40 | disposition left against medical advice (07) | DRG 282 ==
LOC: ER 10:00 → 6EST 12:18 → ENRESERV 15:22
PROVIDERS: ADMIT Internal Medicine; ATTEND Internal Medicine
DX: K85.10 Biliary acute pancreatitis without necrosis or infection (principal); D61.818 Other pancytopenia; D70.9 Neutropenia, unspecified; D69.6 Thrombocytopenia, unspecified; K74.60 Unspecified cirrhosis of liver; B18.2 Chronic viral hepatitis C; I10 Essential (primary) hypertension; F14.90 Cocaine use, unspecified, uncomplicated; F15.90 Other stimulant use, unspecified, uncomplicated; E03.9 Hypothyroidism, unspecified; E66.9 Obesity, unspecified; K57.90 Diverticulosis of intestine, part unspecified, without perforation or abscess without bleeding; K21.9 Gastro-esophageal reflux disease without esophagitis; K59.00 Constipation, unspecified; K76.9 Liver disease, unspecified; F41.9 Anxiety disorder, unspecified; Z87.11 Personal history of peptic ulcer disease; Z82.49 Family history of ischemic heart disease and other diseases of the circulatory system; Z88.8 Allergy status to other drugs, medicaments and biological substances; Z88.6 Allergy status to analgesic agent; Z91.041 Radiographic dye allergy status; Z88.5 Allergy status to narcotic agent; Z88.0 Allergy status to penicillin; Z91.013 Allergy to seafood; Z68.23 Body mass index [BMI] 23.0-23.9, adult
CPT/HCPCS: 36415; 74176; 76700; 78227; 80048; 80061; 80076; 83735; 84100; 84439; 84443; 84481; 93970; 96374; 96375; 97110; 97162; 97166; 99285; A9537; C9113; J1170; J1885; J2060; J2270; J2405

== ENCOUNTER 2018-09-12 05:46 | Inpatient (IN) | payer MEDICAID ==
[2018-09-12] VITALS (7 sets, daily range): BP systolic 143–160; BP diastolic 79–91
[~2018-09-12] VITALS: Ht 149.9 cm; Wt 70.3 kg
[2018-09-12 06:38] LABS: BASOPHILS % 1.7 % (0.0-2.0); EOSINOPHILS % 0.9 % (0.0-5.0); HEMATOCRIT. 38.3 % (36.0-48.0); HEMOGLOBIN. 13.2 g/dL (12.0-16.0); LYMPHOCYTES % 28.6 % (20.0-50.0); MEAN CORPUSCULAR HEMOGLOBIN 35.2 pg (28.0-32.0); MEAN CORPUSCULAR VOLUME 101.9 fL (81.0-99.0); MEAN PLATELET VOLUME 9.6 fl (7.4-10.4); MONOCYTES % 11.4 % (2.0-8.0); NEUTROPHILS % 57.4 % (40.0-76.0); PLATELET 80 x1000/uL (130-400); RED BLOOD CELL COUNT 3.76 mill/uL (4.2-5.4); RED CELL DISTRIBUTION WIDTH 15.4 % (11.6-14.6)
[2018-09-12 06:41] LABS: CHLORIDE 105 mEq/L (98-107)
[2018-09-12 06:45] LABS: INR 1.4; PARTIAL THROMBOPLASTIN TIME 30.4 sec (23.4-31.0); PROTHROMBIN TIME 14.5 sec (9.6-11.0)
[2018-09-12 06:47] LABS: ETHANOL BLOOD 90 mg/dL
[2018-09-12] MEDS ORDERED: SODIUM CHLORIDE 0.9% 1,000 ML IV ONE (07:01)
[2018-09-12] MEDS ORDERED: LORAZEPAM 2MG/ML CPJ IV ONE (08:00)
[2018-09-12 08:12] LABS: *AMPHETAMINES SCREEN URINE PRESUMTIVE POSITIVE (NEGATIVE); *BARBITURATES SCREEN URINE NEGATIVE (NEGATIVE); *BENZODIAZEPINES SCREEN URINE PRESUMTIVE POSITIVE (NEGATIVE); *COCAINE SCREEN URINE NEGATIVE (NEGATIVE); METHADONE URINE SCREEN NEGATIVE (NEGATIVE); OPIATES URINE SCREEN NEGATIVE (NEGATIVE)
[2018-09-12 08:13] LABS: CANNABINOID URINE SCREEN NEGATIVE (NEGATIVE); PHENCYCLIDINE URINE SCREEN NEGATIVE (NEGATIVE)
[2018-09-12] MEDS: MULTIVITAMINS,THER W-MINERALS TABLET PO SCH (12:17)
[2018-09-12] MEDS: THIAMINE HCL 100MG TABLET PO SCH (12:17)
[2018-09-12] MEDS: FOLIC ACID 1MG TABLET PO SCH (12:17)
[2018-09-12] MEDS ORDERED: IPRATROPIUM/ALBUTEROL 0.5-3(2.5)MG/3ML NEB INH PRN (13:30)
[2018-09-12] MEDS ORDERED: CLONIDINE 0.1MG TABLET PO PRN (13:30)
[2018-09-12] MEDS ORDERED: LORAZEPAM 0.5MG TABLET PO PRN (13:30)
[2018-09-12] MEDS ORDERED: DOCUSATE SODIUM 100MG CAPSULE PO PRN (13:30)
[2018-09-12] MEDS ORDERED: ONDANSETRON HCL 4MG/2ML INJ IV PRN (13:30)
[2018-09-12 13:37] LABS: T4 FREE 1.29 ng/dL (0.76-1.46)
[2018-09-12 13:50] LABS: FOLIC ACID (FOLATE) SERUM 13.2 ng/mL (>5.38)
[2018-09-12] MEDS: PANTOPRAZOLE SODIUM 40 MG/VIAL IV SCH ×2 (14:27→20:59)
[2018-09-12] MEDS: ALPRAZOLAM 0.5 MG TABLET PO PRN ×2 (14:27→23:30)
[2018-09-12] MEDS: ATENOLOL 25MG TABLET PO SCH ×2 (14:28→20:58)
[2018-09-12] MEDS ORDERED: AMLODIPINE 5MG TABLET PO NR (16:00)
[2018-09-12] MEDS: POLYETHYLENE GLYCOL 3350 (17GM) 1 DOSE PACK PO SCH (20:15)
[2018-09-12] MEDS: MORPHINE SULFATE 4 MG/ML CPJ (NOT FOR IM USE) IV PRN (20:56)
[2018-09-12] MEDS: AMLODIPINE 5MG TABLET PO SCH (20:59)
[2018-09-13] VITALS (7 sets, daily range): BP systolic 111–122; BP diastolic 48–75
[2018-09-13] MEDS: MORPHINE SULFATE 4 MG/ML CPJ (NOT FOR IM USE) IV PRN (03:07)
[2018-09-13 07:00] LABS: BASOPHILS % 0.8 % (0.0-2.0); HEMATOCRIT. 39.3 % (36.0-48.0); HEMOGLOBIN. 13.3 g/dL (12.0-16.0); LYMPHOCYTES % 40.5 % (20.0-50.0); MEAN CORPUSCULAR HEMOGLOBIN 34.6 pg (28.0-32.0); MEAN PLATELET VOLUME 10.1 fl (7.4-10.4); MONOCYTES % 11.8 % (2.0-8.0); NEUTROPHILS % 42.9 % (40.0-76.0); PLATELET 83 x1000/uL (130-400); RED BLOOD CELL COUNT 3.85 mill/uL (4.2-5.4); RED CELL DISTRIBUTION WIDTH 15.7 % (11.6-14.6)
[2018-09-13 07:10] LABS: CHLORIDE 102 mEq/L (98-107)
[2018-09-13] MEDS: THIAMINE HCL 100MG TABLET PO SCH (08:01)
[2018-09-13] MEDS: FOLIC ACID 1MG TABLET PO SCH (08:01)
[2018-09-13] MEDS: MULTIVITAMINS,THER W-MINERALS TABLET PO SCH (08:01)
[2018-09-13] MEDS: AMLODIPINE 5MG TABLET PO SCH (08:01)
[2018-09-13] MEDS: PANTOPRAZOLE SODIUM 40 MG/VIAL IV SCH (08:01)
[2018-09-13] MEDS: ATENOLOL 25MG TABLET PO SCH (08:02)
[2018-09-13] MEDS: POLYETHYLENE GLYCOL 3350 (17GM) 1 DOSE PACK PO SCH (08:07)
[2018-09-13] MEDS ORDERED: ONDANSETRON HCL 4MG/2ML INJ IV PRN (08:15)
[2018-09-13] MEDS ORDERED: ZOLPIDEM TARTRATE 5MG TABLET PO PRN (11:45)
[2018-09-13] MEDS: ALPRAZOLAM 0.5 MG TABLET PO PRN (11:51)
[2018-09-13] MEDS ORDERED: MEGESTROL ACETATE 400 MG/10 ML UDC PO SCH (12:00)
== END 2018-09-13 12:45 | disposition left against medical advice (07) | DRG 812 ==
LOC: ER 05:46 → 5EST 07:37 → EDBEDREQTM 07:40 → EDBEDREQSVC 07:40 → EDBEDREQ 07:40 → ENRESERV 10:09
PROVIDERS: ADMIT Internal Medicine; ATTEND Internal Medicine
DX: T43.621A Poisoning by amphetamines, accidental (unintentional), initial encounter (principal); K92.0 Hematemesis; D68.4 Acquired coagulation factor deficiency; D69.59 Other secondary thrombocytopenia; T43.641A Poisoning by ecstasy, accidental (unintentional), initial encounter; T42.4X1A Poisoning by benzodiazepines, accidental (unintentional), initial encounter; M94.0 Chondrocostal junction syndrome [Tietze]; I45.81 Long QT syndrome; I11.9 Hypertensive heart disease without heart failure; K70.10 Alcoholic hepatitis without ascites; E78.5 Hyperlipidemia, unspecified; F17.210 Nicotine dependence, cigarettes, uncomplicated; F32.9 Major depressive disorder, single episode, unspecified; F41.0 Panic disorder [episodic paroxysmal anxiety]; F41.1 Generalized anxiety disorder; K74.60 Unspecified cirrhosis of liver; Y90.4 Blood alcohol level of 80-99 mg/100 ml; B18.2 Chronic viral hepatitis C; F41.9 Anxiety disorder, unspecified; F19.10 Other psychoactive substance abuse, uncomplicated; F10.10 Alcohol abuse, uncomplicated; Z85.05 Personal history of malignant neoplasm of liver; Z88.0 Allergy status to penicillin; Z91.041 Radiographic dye allergy status; Z88.8 Allergy status to other drugs, medicaments and biological substances; G45.9 Transient cerebral ischemic attack, unspecified
CPT/HCPCS: 36415; 70551; 71045; 80048; 80061; 80305; 80320; 82607; 82746; 82962; 83036; 83735; 83880; 84439; 84443; 84481; 84484; 93005; 93306; 93880; 93970; 96361; 96374; 97162; 97165; 99291; C9113; J2060; J2270; J2405; J7030; J7050; G0480

== ENCOUNTER 2018-10-10 04:39 | Emergency (ER) | payer MEDICAID ==
[~2018-10-10] VITALS: Ht 160 cm; Wt 65.0 kg
[~2018-10-10 04:39] MED LIST changes: -BUSP30TA2 PO
[2018-10-10] MEDS ORDERED: SODIUM CHLORIDE 0.9% 1,000 ML IV ONE (06:25)
[2018-10-10] MEDS ORDERED: ONDANSETRON HCL 4MG/2ML INJ IV STA (06:25)
[2018-10-10 06:53] LABS: BASOPHILS % 1.1 % (0.0-2.0); EOSINOPHILS % 0.9 % (0.0-5.0); HEMATOCRIT. 36.8 % (36.0-48.0); HEMOGLOBIN. 12.8 g/dL (12.0-16.0); LYMPHOCYTES % 22.2 % (20.0-50.0); MEAN CORPUSCULAR HEMOGLOBIN 35.5 pg (28.0-32.0); MONOCYTES % 10.7 % (2.0-8.0); NEUTROPHILS % 65.1 % (40.0-76.0); PLATELET 71 x1000/uL (130-400); RED CELL DISTRIBUTION WIDTH 17.6 % (11.6-14.6)
[2018-10-10 07:05] LABS: INR 1.4; PROTHROMBIN TIME 13.8 sec (9.6-11.0)
[2018-10-10 07:10] LABS: CHLORIDE 108 mEq/L (98-107)
[2018-10-10 07:14] LABS: ETHANOL BLOOD 56 mg/dL
[2018-10-10 07:56] LABS: *AMPHETAMINES SCREEN URINE PRESUMTIVE POSITIVE (NEGATIVE)
[2018-10-10 07:57] LABS: *BARBITURATES SCREEN URINE NEGATIVE (NEGATIVE); *BENZODIAZEPINES SCREEN URINE PRESUMTIVE POSITIVE (NEGATIVE); *COCAINE SCREEN URINE NEGATIVE (NEGATIVE)
[2018-10-10 07:58] LABS: CANNABINOID URINE SCREEN NEGATIVE (NEGATIVE); METHADONE URINE SCREEN NEGATIVE (NEGATIVE); OPIATES URINE SCREEN NEGATIVE (NEGATIVE); PHENCYCLIDINE URINE SCREEN NEGATIVE (NEGATIVE)
[2018-10-10 07:59] VITALS: BP 127/51
[2018-10-10] MEDS ORDERED: MORPHINE SULFATE 4 MG/ML CPJ (NOT FOR IM USE) IV ONE (08:00)
[2018-10-10] MEDS ORDERED: ONDANSETRON HCL 4MG/2ML INJ IV ONE (08:15)
== END 2018-10-10 10:36 | disposition home or self-care (01) ==
LOC: ER 04:39
DX: F19.10 Other psychoactive substance abuse, uncomplicated (principal); R07.89 Other chest pain; F12.10 Cannabis abuse, uncomplicated; F15.10 Other stimulant abuse, uncomplicated; I10 Essential (primary) hypertension; Z98.890 Other specified postprocedural states; Z88.0 Allergy status to penicillin; Z88.6 Allergy status to analgesic agent; Z88.8 Allergy status to other drugs, medicaments and biological substances; Z91.041 Radiographic dye allergy status; Z91.013 Allergy to seafood; Z85.05 Personal history of malignant neoplasm of liver
CPT/HCPCS: 36415; 70450; 71045; 80053; 80305; 80320; 83605; 83880; 84484; 85025; 85610; 93005; 96361; 96374; 96375; 96376; 99284; J2270; J2405; J7030; G0480

== ENCOUNTER 2018-10-17 23:41 | Emergency (ER) | payer MEDICAID ==
[~2018-10-17] VITALS: Ht 157.5 cm; Wt 64.0 kg
[2018-10-18] MEDS ORDERED: ONDANSETRON HCL 4MG/2ML INJ IV STA (01:10)
[2018-10-18] MEDS ORDERED: SODIUM CHLORIDE 0.9% 1,000 ML IV ONE (01:10)
[2018-10-18 02:48] LABS: CHLORIDE 105 mEq/L (98-107)
[2018-10-18 02:52] LABS: BASOPHILS % 1.1 % (0.0-2.0); HEMATOCRIT. 38.6 % (36.0-48.0); HEMOGLOBIN. 13.3 g/dL (12.0-16.0); MEAN CORPUSCULAR HEMOGLOBIN 35.6 pg (28.0-32.0); MEAN CORPUSCULAR VOLUME 103.4 fL (81.0-99.0); MEAN PLATELET VOLUME 9.1 fl (7.4-10.4); MONOCYTES % 12.3 % (2.0-8.0); NEUTROPHILS % 50.6 % (40.0-76.0); PLATELET 80 x1000/uL (130-400); RED BLOOD CELL COUNT 3.73 mill/uL (4.2-5.4); RED CELL DISTRIBUTION WIDTH 17.8 % (11.6-14.6)
[2018-10-18] MEDS ORDERED: SODIUM CHLORIDE 0.9% 1000ML BAG (SEPSIS BOLUS) IV SCH (04:00)
[2018-10-18] MEDS ORDERED: KETOROLAC 30MG/ML VIAL IV ONE (04:45)
[2018-10-18 08:58] VITALS: BP 159/64
== END 2018-10-18 09:01 | disposition home or self-care (01) ==
LOC: ER 23:41 → CANBEDREQ 10-18 09:15
DX: K85.10 Biliary acute pancreatitis without necrosis or infection (principal); F12.90 Cannabis use, unspecified, uncomplicated
CPT/HCPCS: 36415; 71045; 76705; 80053; 83605; 83690; 85025; 93005; 96374; 96375; 99284; J1885; J2405; J7030; Z7610

== ENCOUNTER 2018-10-20 08:01 | Emergency (ER) | payer MEDICAID ==
[~2018-10-20] VITALS: Ht 157.5 cm; Wt 65.0 kg
[2018-10-20 08:51] LABS: BASOPHILS % 1.1 % (0.0-2.0); EOSINOPHILS % 1.8 % (0.0-5.0); HEMATOCRIT. 35.8 % (36.0-48.0); HEMOGLOBIN. 12.3 g/dL (12.0-16.0); LYMPHOCYTES % 35.3 % (20.0-50.0); MEAN CORPUSCULAR HEMOGLOBIN 35.4 pg (28.0-32.0); MEAN CORPUSCULAR VOLUME 103.3 fL (81.0-99.0); MEAN PLATELET VOLUME 9.3 fl (7.4-10.4); MONOCYTES % 13.7 % (2.0-8.0); NEUTROPHILS % 48.1 % (40.0-76.0); PLATELET 77 x1000/uL (130-400); RED BLOOD CELL COUNT 3.46 mill/uL (4.2-5.4); RED CELL DISTRIBUTION WIDTH 17.2 % (11.6-14.6)
[2018-10-20 08:56] LABS: CHLORIDE 106 mEq/L (98-107)
[2018-10-20 10:08] VITALS: BP 123/76
== END 2018-10-20 10:08 | disposition home or self-care (01) ==
LOC: ER 08:01
DX: R07.89 Other chest pain (principal); F15.10 Other stimulant abuse, uncomplicated; I10 Essential (primary) hypertension; F14.10 Cocaine abuse, uncomplicated; K76.9 Liver disease, unspecified; Z88.8 Allergy status to other drugs, medicaments and biological substances; Z88.6 Allergy status to analgesic agent; Z91.041 Radiographic dye allergy status; Z88.0 Allergy status to penicillin; Z91.013 Allergy to seafood; Z98.890 Other specified postprocedural states; Z85.9 Personal history of malignant neoplasm, unspecified
CPT/HCPCS: 36415; 71045; 83880; 84484; 93005; 99284

== ENCOUNTER 2018-10-29 06:49 | Emergency (ER) | payer MEDICAID ==
[~2018-10-29] VITALS: Ht 167.6 cm; Wt 77.0 kg
[2018-10-29] MEDS ORDERED: NITROGLYCERIN 0.4MG TABLET SL SL PRN (07:15)
[2018-10-29] MEDS ORDERED: ASPIRIN 81MG TABLET PO ONE (07:15)
[2018-10-29 08:05] LABS: BASOPHILS % 0.9 % (0.0-2.0); EOSINOPHILS % 0.4 % (0.0-5.0); HEMATOCRIT. 39.2 % (36.0-48.0); HEMOGLOBIN. 13.4 g/dL (12.0-16.0); LYMPHOCYTES % 20.9 % (20.0-50.0); MEAN CORPUSCULAR HEMOGLOBIN 35.6 pg (28.0-32.0); MEAN CORPUSCULAR VOLUME 103.9 fL (81.0-99.0); MEAN PLATELET VOLUME 9.6 fl (7.4-10.4); MONOCYTES % 11.4 % (2.0-8.0); NEUTROPHILS % 66.4 % (40.0-76.0); PLATELET 83 x1000/uL (130-400); RED BLOOD CELL COUNT 3.78 mill/uL (4.2-5.4); RED CELL DISTRIBUTION WIDTH 17.1 % (11.6-14.6)
[2018-10-29 08:12] LABS: CHLORIDE 107 mEq/L (98-107)
[2018-10-29 08:16] LABS: ETHANOL BLOOD 16 mg/dL
[2018-10-29] MEDS ORDERED: SODIUM CHLORIDE 0.9% 1,000 ML IV ONE (08:38)
[2018-10-29] MEDS ORDERED: LORAZEPAM 2MG/ML CPJ IV STA (08:38)
[2018-10-29] MEDS ORDERED: ACETAMINOPHEN WITH CODEINE 300/30MG TABLET PO ONE (12:15)
[2018-10-29] MEDS ORDERED: LORAZEPAM 0.5MG TABLET PO ONE (12:30)
[2018-10-29 12:49] VITALS: BP 145/95
[2018-10-30] MEDS ORDERED: CLON1TAB12 PO (04:38)
[2018-10-30] MEDS ORDERED: CLOP75TA4 PO (04:38)
[2018-10-30] MEDS ORDERED: AMLO10TA80 PO (04:38)
== END 2018-10-29 12:54 | disposition home or self-care (01) ==
LOC: ER 06:49
DX: R07.89 Other chest pain (principal); R00.2 Palpitations; I10 Essential (primary) hypertension; C22.8 Malignant neoplasm of liver, primary, unspecified as to type; F14.10 Cocaine abuse, uncomplicated; F15.10 Other stimulant abuse, uncomplicated; F17.210 Nicotine dependence, cigarettes, uncomplicated
CPT/HCPCS: 36415; 71045; 80053; 80320; 83690; 83880; 84484; 85025; 93005; 96374; 99284; J2060; J7030; Z7610; G0480

== ENCOUNTER 2018-10-29 22:50 | Inpatient (IN) | payer MEDICAID ==
[~2018-10-29] VITALS: Ht 149.9 cm; Wt 76.7 kg
[2018-10-29] MEDS ORDERED: SODIUM CHLORIDE 0.9% 1,000 ML IV ONE (23:30)
[2018-10-29] MEDS ORDERED: FAMOTIDINE 20MG/2ML VIAL IV STA (23:30)
[2018-10-29 23:55] LABS: EOSINOPHILS % 1.7 % (0.0-5.0); HEMATOCRIT. 37.8 % (36.0-48.0); HEMOGLOBIN. 13.3 g/dL (12.0-16.0); LYMPHOCYTES % 36.6 % (20.0-50.0); MEAN CORPUSCULAR HEMOGLOBIN 36.3 pg (28.0-32.0); MEAN CORPUSCULAR VOLUME 103.4 fL (81.0-99.0); MEAN PLATELET VOLUME 9.2 fl (7.4-10.4); MONOCYTES % 11.3 % (2.0-8.0); NEUTROPHILS % 49.4 % (40.0-76.0); PLATELET 82 x1000/uL (130-400); RED BLOOD CELL COUNT 3.65 mill/uL (4.2-5.4); RED CELL DISTRIBUTION WIDTH 17.4 % (11.6-14.6)
[2018-10-29 23:57] LABS: CHLORIDE 104 mEq/L (98-107)
[2018-10-30 00:02] LABS: ETHANOL BLOOD < 10 mg/dL; INR 1.4; PROTHROMBIN TIME 13.9 sec (9.6-11.0)
[2018-10-30 00:55] LABS: CLARITY URINE CLEAR (CLEAR); COLOR URINE YELLOW (YELLOW); KETONES URINE NEGATIVE (NEGATIVE); LEUKOCYTE ESTERASE URINE 1+ (NEGATIVE); NITRITE URINE NEGATIVE (NEGATIVE); OCCULT BLOOD URINE 1+ (NEGATIVE); PROTEIN URINE NEGATIVE (NEGATIVE); SPECIFIC GRAVITY URINE 1.005 (1.005-1.030); UROBILINOGEN URINE 0.2 E.U./dL (0.2-1.0)
[2018-10-30 01:08] LABS: *AMPHETAMINES SCREEN URINE PRESUMTIVE POSITIVE (NEGATIVE); *BARBITURATES SCREEN URINE NEGATIVE (NEGATIVE); *COCAINE SCREEN URINE PRESUMTIVE POSITIVE (NEGATIVE); CANNABINOID URINE SCREEN NEGATIVE (NEGATIVE); PHENCYCLIDINE URINE SCREEN NEGATIVE (NEGATIVE)
[2018-10-30 01:09] LABS: *BENZODIAZEPINES SCREEN URINE PRESUMTIVE POSITIVE (NEGATIVE); METHADONE URINE SCREEN NEGATIVE (NEGATIVE); OPIATES URINE SCREEN NEGATIVE (NEGATIVE)
[2018-10-30 04:00] VITALS: BP 149/71
[2018-10-30] MEDS ORDERED: CLON1TAB12 PO (04:38)
[2018-10-30] MEDS ORDERED: CLOP75TA4 PO (04:38)
[2018-10-30] MEDS ORDERED: AMLO10TA80 PO (04:38)
[2018-10-30] MEDS ORDERED: MORPHINE SULFATE 2 MG/ML CPJ (NOT FOR IM USE) IV PRN (07:30)
[2018-10-30 07:54] VITALS: BP 151/83
[2018-10-30] MEDS: SODIUM CHLORIDE 0.9% 1,000 ML IV SCH ×2 (08:11→21:27)
[2018-10-30 08:58] LABS: HEMATOCRIT 37.3 % (36.0-48.0); HEMOGLOBIN 12.8 g/dL (12.0-16.0); MEAN CORPUSCULAR HEMOGLOBIN 35.7 pg (28.0-32.0); PLATELET 74 x1000/uL (130-400); RED BLOOD CELL COUNT 3.59 mill/uL (4.2-5.4); RED CELL DISTRIBUTION WIDTH 16.8 % (11.6-14.6)
[2018-10-30 09:26] LABS: CHLORIDE 106 mEq/L (98-107)
[2018-10-30 11:54] VITALS: BP 148/84
[2018-10-30] MEDS ORDERED: NALOXONE HCL 0.4 MG/ML 1ML VIAL IV NR (13:10)
[2018-10-30 15:48] VITALS: BP 140/70
[2018-10-30] MEDS: AMLODIPINE 10MG TABLET PO SCH (17:15)
[2018-10-30] MEDS ORDERED: CLONAZEPAM 1MG TABLET PO PRN (17:15)
[2018-10-30] MEDS: HYDROMORPHONE HCL/PF 2MG/ML CPJ IV PRN ×2 (17:36→21:22)
[2018-10-30 20:00] VITALS: BP 132/82
[2018-10-31 00:22] VITALS: BP 139/85
[2018-10-31] MEDS: HYDROMORPHONE HCL/PF 2MG/ML CPJ IV PRN ×6 (00:52→20:54)
[2018-10-31 04:42] VITALS: BP 136/77
[2018-10-31 06:01] LABS: HEMOGLOBIN. 13.1 g/dL (12.0-16.0); LYMPHOCYTES % 37.8 % (20.0-50.0); MEAN CORPUSCULAR HEMOGLOBIN 35.7 pg (28.0-32.0); MEAN CORPUSCULAR VOLUME 106.5 fL (81.0-99.0); MEAN PLATELET VOLUME 9.7 fl (7.4-10.4); MONOCYTES % 10.8 % (2.0-8.0); NEUTROPHILS % 47.4 % (40.0-76.0); PLATELET 68 x1000/uL (130-400); RED BLOOD CELL COUNT 3.66 mill/uL (4.2-5.4); RED CELL DISTRIBUTION WIDTH 17.1 % (11.6-14.6)
[2018-10-31 06:42] LABS: CHLORIDE 108 mEq/L (98-107)
[2018-10-31 08:00] VITALS: BP 135/78
[2018-10-31] MEDS: CLOPIDOGREL 75MG TABLET PO SCH (08:32)
[2018-10-31] MEDS: AMLODIPINE 10MG TABLET PO SCH (08:32)
[2018-10-31 12:00] VITALS: BP 145/84
[2018-10-31] MEDS: SODIUM CHLORIDE 0.9% 1,000 ML IV SCH (14:10)
[2018-10-31 16:00] VITALS: BP 122/66
[2018-10-31 20:00] VITALS: BP 109/68
[2018-10-31] MEDS ORDERED: SIMETHICONE 80MG TABLET CHEW PO PRN (20:45)
[2018-10-31] MEDS: NITROFURANTOIN 100MG M/M CAPSULE PO SCH (20:54)
[2018-11-01] VITALS: BP 107/63
[2018-11-01] MEDS: SODIUM CHLORIDE 0.9% 1,000 ML IV SCH ×2 (02:59→17:06)
[2018-11-01] MEDS: HYDROMORPHONE HCL/PF 2MG/ML CPJ IV PRN ×5 (03:04→23:45)
[2018-11-01 04:07] VITALS: BP 112/67
[2018-11-01 07:11] LABS: HEMATOCRIT. 38.5 % (36.0-48.0); HEMOGLOBIN. 12.9 g/dL (12.0-16.0); MEAN CORPUSCULAR HEMOGLOBIN 35.5 pg (28.0-32.0); MEAN CORPUSCULAR VOLUME 106.1 fL (81.0-99.0); MEAN PLATELET VOLUME 9.6 fl (7.4-10.4); PLATELET 71 x1000/uL (130-400); RED BLOOD CELL COUNT 3.63 mill/uL (4.2-5.4); RED CELL DISTRIBUTION WIDTH 16.3 % (11.6-14.6)
[2018-11-01 07:38] LABS: CHLORIDE 107 mEq/L (98-107)
[2018-11-01 08:27] VITALS: BP 116/61
[2018-11-01] MEDS: NITROFURANTOIN 100MG M/M CAPSULE PO SCH ×2 (09:00→21:00)
[2018-11-01] MEDS: CLOPIDOGREL 75MG TABLET PO SCH (09:00)
[2018-11-01] MEDS: AMLODIPINE 10MG TABLET PO SCH (09:00)
[2018-11-01 11:50] VITALS: BP 114/59
[2018-11-01 13:59] LABS: PLATELET ESTIMATE DECREASED
[2018-11-01 15:16] VITALS: BP 115/67
[2018-11-01 20:00] VITALS: BP 103/49
[2018-11-01] MEDS: ONDANSETRON HCL 4MG/2ML INJ IV PRN (20:25)
[2018-11-02] VITALS: BP 92/51
[2018-11-02] MEDS: SODIUM CHLORIDE 0.9% 1,000 ML IV SCH ×3 (03:44→23:30)
[2018-11-02] MEDS: HYDROMORPHONE HCL/PF 2MG/ML CPJ IV PRN ×5 (03:45→23:43)
[2018-11-02 04:00] VITALS: BP 94/56
[2018-11-02 07:50] LABS: HEMATOCRIT. 38.2 % (36.0-48.0); HEMOGLOBIN. 12.9 g/dL (12.0-16.0); MEAN CORPUSCULAR HEMOGLOBIN 35.9 pg (28.0-32.0); MEAN CORPUSCULAR VOLUME 105.9 fL (81.0-99.0); MEAN PLATELET VOLUME 9.5 fl (7.4-10.4); PLATELET 76 x1000/uL (130-400); RED CELL DISTRIBUTION WIDTH 16.3 % (11.6-14.6)
[2018-11-02 08:17] VITALS: BP 98/56
[2018-11-02 08:19] LABS: CHLORIDE 107 mEq/L (98-107)
[2018-11-02] MEDS: AMLODIPINE 10MG TABLET PO SCH (09:00)
[2018-11-02] MEDS: NITROFURANTOIN 100MG M/M CAPSULE PO SCH ×2 (09:26→20:33)
[2018-11-02] MEDS: CLOPIDOGREL 75MG TABLET PO SCH (09:26)
[2018-11-02 11:38] VITALS: BP 102/49
[2018-11-02 15:07] LABS: PLATELET ESTIMATE DECREASED
[2018-11-02 15:40] VITALS: BP 95/48
[2018-11-02 20:00] VITALS: BP 121/71
[2018-11-02] MEDS: ONDANSETRON HCL 4MG/2ML INJ IV PRN (20:32)
[2018-11-03] VITALS: BP 130/68
[2018-11-03 04:00] VITALS: BP 110/59
[2018-11-03] MEDS: HYDROMORPHONE HCL/PF 2MG/ML CPJ IV PRN ×2 (05:07→09:54)
[2018-11-03 08:00] VITALS: BP 115/69
[2018-11-03] MEDS: NITROFURANTOIN 100MG M/M CAPSULE PO SCH ×2 (09:39→21:34)
[2018-11-03] MEDS: CLOPIDOGREL 75MG TABLET PO SCH (09:40)
[2018-11-03] MEDS: AMLODIPINE 10MG TABLET PO SCH (09:40)
[2018-11-03] MEDS: ONDANSETRON HCL 4MG/2ML INJ IV PRN (09:52)
[2018-11-03 12:00] VITALS: BP 132/62
[2018-11-03 16:00] VITALS: BP 106/57
[2018-11-03] MEDS: SODIUM CHLORIDE 0.9% 1,000 ML IV SCH (17:35)
[2018-11-03 20:00] VITALS: BP 124/73
[2018-11-04] VITALS: BP 115/62
[2018-11-04] MEDS: SODIUM CHLORIDE 0.9% 1,000 ML IV SCH (00:30)
[2018-11-04 04:00] VITALS: BP 111/60
[2018-11-04 08:00] VITALS: BP 101/54
[2018-11-04] MEDS: AMLODIPINE 10MG TABLET PO SCH (09:00)
[2018-11-04] MEDS: NITROFURANTOIN 100MG M/M CAPSULE PO SCH (09:06)
[2018-11-04] MEDS: CLOPIDOGREL 75MG TABLET PO SCH (09:06)
[2018-11-04] MEDS ORDERED: DEXT 5%/0.45% NACL 1000ML 1,000 ML IV SCH (10:00)
[2018-11-04 11:31] VITALS: BP 101/58
== END 2018-11-04 11:30 | disposition home health service (06) | DRG 282 ==
LOC: ER 22:50 → 6WST 10-30 00:31 → ENRESERV 10-30 02:33 → 6WST 10-30 04:56 → 5WST 10-30 12:46
PROVIDERS: ADMIT Internal Medicine; ATTEND Internal Medicine
DX: K85.90 Acute pancreatitis without necrosis or infection, unspecified (principal); D68.4 Acquired coagulation factor deficiency; D69.59 Other secondary thrombocytopenia; K74.60 Unspecified cirrhosis of liver; B18.2 Chronic viral hepatitis C; F41.0 Panic disorder [episodic paroxysmal anxiety]; F14.10 Cocaine abuse, uncomplicated; F10.10 Alcohol abuse, uncomplicated; I10 Essential (primary) hypertension; E66.9 Obesity, unspecified; D72.819 Decreased white blood cell count, unspecified; G89.4 Chronic pain syndrome; I25.10 Atherosclerotic heart disease of native coronary artery without angina pectoris; E16.2 Hypoglycemia, unspecified; I45.81 Long QT syndrome; N39.0 Urinary tract infection, site not specified; F15.10 Other stimulant abuse, uncomplicated; K59.00 Constipation, unspecified; Z79.02 Long term (current) use of antithrombotics/antiplatelets; Z79.899 Other long term (current) drug therapy; Z82.49 Family history of ischemic heart disease and other diseases of the circulatory system; Z85.05 Personal history of malignant neoplasm of liver; Z88.6 Allergy status to analgesic agent; Z88.1 Allergy status to other antibiotic agents; Z87.11 Personal history of peptic ulcer disease; Z95.5 Presence of coronary angioplasty implant and graft; Z88.0 Allergy status to penicillin; Z88.8 Allergy status to other drugs, medicaments and biological substances; Z91.041 Radiographic dye allergy status; Z91.013 Allergy to seafood; Z79.01 Long term (current) use of anticoagulants; I25.2 Old myocardial infarction; Z98.891 History of uterine scar from previous surgery; Z68.34 Body mass index [BMI] 34.0-34.9, adult
CPT/HCPCS: 36415; 74018; 76700; 80048; 80076; 80305; 80320; 82962; 83735; 84484; 85027; 93970; 99285; J1170; J2270; J2310; J2405; J3490; J7030; G0480

== ENCOUNTER 2018-11-11 04:53 | Emergency (ER) | payer MEDICAID ==
[~2018-11-11] VITALS: Ht 162.6 cm; Wt 64.0 kg
[~2018-11-11 04:53] MED LIST changes: +AMLO10TA80 PO; +CLON1TAB12 PO; +CLOP75TA4 PO
[2018-11-11] MEDS ORDERED: ONDANSETRON HCL 4MG/2ML INJ IV ONE (05:30)
[2018-11-11 05:40] LABS: BASOPHILS % 0.8 % (0.0-2.0); EOSINOPHILS % 0.1 % (0.0-5.0); LYMPHOCYTES % 26.9 % (20.0-50.0); MEAN CORPUSCULAR HEMOGLOBIN 35.4 pg (28.0-32.0); MEAN CORPUSCULAR VOLUME 103.9 fL (81.0-99.0); MEAN PLATELET VOLUME 9.3 fl (7.4-10.4); MONOCYTES % 10.9 % (2.0-8.0); NEUTROPHILS % 61.3 % (40.0-76.0); PLATELET 125 x1000/uL (130-400); RED BLOOD CELL COUNT 3.66 mill/uL (4.2-5.4); RED CELL DISTRIBUTION WIDTH 15.8 % (11.6-14.6)
[2018-11-11 05:44] LABS: INR 1.3
[2018-11-11] MEDS ORDERED: FAMOTIDINE 20MG/2ML VIAL IV STA (06:11)
[2018-11-11] MEDS ORDERED: SODIUM CHLORIDE 0.9% 1,000 ML IV ONE (06:11)
[2018-11-11] MEDS ORDERED: MORPHINE SULFATE 4 MG/ML CPJ (NOT FOR IM USE) IV STA (06:11)
[2018-11-11] MEDS ORDERED: ONDANSETRON HCL 4MG/2ML INJ IV STA (06:11)
[2018-11-11 06:29] LABS: CHLORIDE 109 mEq/L (98-107)
[2018-11-11 06:34] LABS: ETHANOL BLOOD 86 mg/dL
[2018-11-11 08:20] VITALS: BP 141/77
== END 2018-11-11 08:43 | disposition home or self-care (01) ==
LOC: ER 04:53
DX: G89.29 Other chronic pain (principal); R10.13 Epigastric pain; I10 Essential (primary) hypertension; F10.10 Alcohol abuse, uncomplicated; R11.2 Nausea with vomiting, unspecified; I25.2 Old myocardial infarction; I25.10 Atherosclerotic heart disease of native coronary artery without angina pectoris; F17.210 Nicotine dependence, cigarettes, uncomplicated; F14.10 Cocaine abuse, uncomplicated; Z82.49 Family history of ischemic heart disease and other diseases of the circulatory system; Z91.013 Allergy to seafood; Z79.899 Other long term (current) drug therapy; Z88.0 Allergy status to penicillin; Z88.6 Allergy status to analgesic agent; Z88.8 Allergy status to other drugs, medicaments and biological substances; Z87.19 Personal history of other diseases of the digestive system; Y90.9 Presence of alcohol in blood, level not specified
CPT/HCPCS: 36415; 80053; 80320; 83690; 85025; 85610; 93005; 96361; 96374; 96375; 96376; 99284; 99406; J2270; J2405; J3490; J7030; Z7610; G0480

== ENCOUNTER 2018-11-16 13:08 | Emergency (ER) | payer MEDICAID ==
[~2018-11-16] VITALS: Ht 149.9 cm; Wt 73.0 kg
[2018-11-16] MEDS ORDERED: CLOPIDOGREL 75MG TABLET PO ONE (13:30)
[2018-11-16] MEDS ORDERED: SODIUM CHLORIDE 0.9% 1,000 ML IV ONE (14:00)
[2018-11-16 14:37] LABS: BASOPHILS % 0.8 % (0.0-2.0); EOSINOPHILS % 0.7 % (0.0-5.0); HEMATOCRIT. 39.1 % (36.0-48.0); HEMOGLOBIN. 13.2 g/dL (12.0-16.0); LYMPHOCYTES % 33.8 % (20.0-50.0); MEAN CORPUSCULAR HEMOGLOBIN 35.2 pg (28.0-32.0); MEAN CORPUSCULAR VOLUME 103.8 fL (81.0-99.0); MEAN PLATELET VOLUME 8.9 fl (7.4-10.4); MONOCYTES % 11.6 % (2.0-8.0); NEUTROPHILS % 53.1 % (40.0-76.0); PLATELET 112 x1000/uL (130-400); RED BLOOD CELL COUNT 3.76 mill/uL (4.2-5.4); RED CELL DISTRIBUTION WIDTH 15.3 % (11.6-14.6)
[2018-11-16 14:45] LABS: CHLORIDE 107 mEq/L (98-107)
[2018-11-16] MEDS ORDERED: MAGNESIUM/ALUMINUM HYDROXIDE/SIMETHICONE 30ML UDC PO ONE (16:30)
[2018-11-16] MEDS ORDERED: VISCOUS LIDOCAINE 2% 15 ML UDC PO ONE (16:30)
[2018-11-16 17:13] VITALS: BP 165/97
== END 2018-11-16 17:16 | disposition home or self-care (01) ==
LOC: ER 13:08
DX: F14.10 Cocaine abuse, uncomplicated (principal); F15.10 Other stimulant abuse, uncomplicated; R07.89 Other chest pain; R00.0 Tachycardia, unspecified; I10 Essential (primary) hypertension; Z90.49 Acquired absence of other specified parts of digestive tract; Z79.899 Other long term (current) drug therapy; Z91.013 Allergy to seafood; Z88.0 Allergy status to penicillin; Z88.6 Allergy status to analgesic agent; Z88.8 Allergy status to other drugs, medicaments and biological substances
CPT/HCPCS: 36415; 71045; 80053; 83880; 84484; 85025; 93005; 99284; J7030; Z7610

== ENCOUNTER 2018-12-22 02:43 | Emergency (ER) | payer MEDICAID ==
[~2018-12-22] VITALS: Ht 162.6 cm; Wt 59.0 kg
[2018-12-22] MEDS ORDERED: ONDANSETRON HCL 4MG/2ML INJ IV STA (05:09)
[2018-12-22] MEDS ORDERED: LORAZEPAM 2MG/ML CPJ IV ONE (05:15)
[2018-12-22 05:23] LABS: CHLORIDE 104 mEq/L (98-107)
[2018-12-22 05:27] LABS: EOSINOPHILS % 0.2 % (0.0-5.0); ETHANOL BLOOD < 10 mg/dL; HEMATOCRIT. 39.5 % (36.0-48.0); HEMOGLOBIN. 13.6 g/dL (12.0-16.0); LYMPHOCYTES % 19.9 % (20.0-50.0); MEAN CORPUSCULAR HEMOGLOBIN 35.1 pg (28.0-32.0); MEAN CORPUSCULAR VOLUME 102.1 fL (81.0-99.0); MEAN PLATELET VOLUME 9.8 fl (7.4-10.4); MONOCYTES % 7.8 % (2.0-8.0); NEUTROPHILS % 71.1 % (40.0-76.0); PLATELET 87 x1000/uL (130-400); RED BLOOD CELL COUNT 3.87 mill/uL (4.2-5.4); RED CELL DISTRIBUTION WIDTH 16.9 % (11.6-14.6)
[2018-12-22 07:34] VITALS: BP 128/70
== END 2018-12-22 07:35 | disposition home or self-care (01) ==
LOC: ER 02:43
DX: R07.89 Other chest pain (principal); F15.10 Other stimulant abuse, uncomplicated
CPT/HCPCS: 36415; 71045; 80053; 80320; 83880; 84484; 85025; 93005; 96374; 96375; 99284; J2060; J2405; G0480

== ENCOUNTER 2019-02-06 09:15 | Emergency (ER) | payer MEDICAID ==
[~2019-02-06] VITALS: Ht 167.6 cm; Wt 60.0 kg
[2019-02-06 09:31] VITALS: BP 134/70
== END 2019-02-06 17:04 | disposition home or self-care (01) ==
LOC: ER 09:15
DX: F19.10 Other psychoactive substance abuse, uncomplicated (principal); I10 Essential (primary) hypertension; F32.9 Major depressive disorder, single episode, unspecified; F15.10 Other stimulant abuse, uncomplicated; Z79.899 Other long term (current) drug therapy; Z88.0 Allergy status to penicillin; Z88.6 Allergy status to analgesic agent; Z91.041 Radiographic dye allergy status; Z88.8 Allergy status to other drugs, medicaments and biological substances; Z91.013 Allergy to seafood
CPT/HCPCS: 99283

== ENCOUNTER 2019-03-24 03:01 | Inpatient (IN) | payer MEDICAID ==
[~2019-03-24] VITALS: Ht 162.6 cm; Wt 67.1 kg
[2019-03-24] MEDS ORDERED: SODIUM CHLORIDE 0.9% 1,000 ML IV ONE (04:10)
[2019-03-24] MEDS ORDERED: LORAZEPAM 2MG/ML CPJ IV STA (04:10)
[2019-03-24 04:34] LABS: BASOPHILS % 0.8 % (0.0-2.0); EOSINOPHILS % 0.1 % (0.0-5.0); HEMATOCRIT. 37.1 % (36.0-48.0); LYMPHOCYTES % 20.8 % (20.0-50.0); MEAN CORPUSCULAR HEMOGLOBIN 35.7 pg (28.0-32.0); MEAN CORPUSCULAR VOLUME 102.3 fL (81.0-99.0); MEAN PLATELET VOLUME 8.8 fl (7.4-10.4); MONOCYTES % 14.4 % (2.0-8.0); NEUTROPHILS % 63.9 % (40.0-76.0); PLATELET 83 x1000/uL (130-400); RED BLOOD CELL COUNT 3.63 mill/uL (4.2-5.4); RED CELL DISTRIBUTION WIDTH 16.6 % (11.6-14.6)
[2019-03-24 04:40] LABS: CHLORIDE 104 mEq/L (98-107)
[2019-03-24 04:45] LABS: ETHANOL BLOOD 26 mg/dL
[2019-03-24 07:13] LABS: *AMPHETAMINES SCREEN URINE PRESUMTIVE POSITIVE (NEGATIVE); *BARBITURATES SCREEN URINE NEGATIVE (NEGATIVE); *BENZODIAZEPINES SCREEN URINE PRESUMTIVE POSITIVE (NEGATIVE); *COCAINE SCREEN URINE NEGATIVE (NEGATIVE)
[2019-03-24 07:14] LABS: CANNABINOID URINE SCREEN NEGATIVE (NEGATIVE); METHADONE URINE SCREEN NEGATIVE (NEGATIVE); OPIATES URINE SCREEN NEGATIVE (NEGATIVE); PHENCYCLIDINE URINE SCREEN NEGATIVE (NEGATIVE)
[2019-03-24] MEDS ORDERED: HYDROCODONE/ACETAMINOPHEN 5/325MG TABLET PO ONE (08:45)
[2019-03-24] MEDS ORDERED: MAGNESIUM/ALUMINUM HYDROXIDE/SIMETHICONE 30ML UDC PO PRN (10:15)
[2019-03-24] MEDS ORDERED: IPRATROPIUM/ALBUTEROL 0.5-3(2.5)MG/3ML NEB HHN PRN (10:15)
[2019-03-24] MEDS ORDERED: ONDANSETRON HCL 4MG/2ML INJ IV PRN (10:15)
[2019-03-24] MEDS ORDERED: DIPHENHYDRAMINE 50MG/ML VIAL IV PRN (10:15)
[2019-03-24] MEDS ORDERED: CLONIDINE 0.1MG TABLET PO PRN (10:15)
[2019-03-24 10:33] LABS: PHOSPHORUS 2.6 mg/dL (2.5-4.9)
[2019-03-24] MEDS ORDERED: ACETAMINOPHEN 160MG/5ML UDC PO ONE (13:15)
[2019-03-24] MEDS ORDERED: CLONAZEPAM 1MG TABLET PO SCH (14:15)
[2019-03-24 15:00] VITALS: BP 153/55
[2019-03-24 15:20] VITALS: BP 153/55
[2019-03-24] MEDS ORDERED: MORPHINE SULFATE 2 MG/ML CPJ (NOT FOR IM USE) IV PRN (16:45)
[2019-03-24 20:00] VITALS: BP 148/71
[2019-03-24] MEDS: ALPRAZOLAM 0.5 MG TABLET PO PRN (21:00)
[2019-03-24] MEDS: OMEPRAZOLE 20MG CAPSULE EXTENDED RELEASE PO SCH (21:00)
[2019-03-25] VITALS: BP 138/83
[2019-03-25 04:00] VITALS: BP 122/66
[2019-03-25 05:58] LABS: CHLORIDE 105 mEq/L (98-107)
[2019-03-25 06:10] LABS: LDL CHOLESTEROL 91 mg/dL (5-100)
[2019-03-25 06:11] LABS: HDL CHOLESTEROL 26 mg/dL (40-59)
[2019-03-25 06:17] LABS: HEMATOCRIT. 34.7 % (36.0-48.0); HEMOGLOBIN. 12.1 g/dL (12.0-16.0); MEAN CORPUSCULAR HEMOGLOBIN 35.7 pg (28.0-32.0); MEAN CORPUSCULAR VOLUME 102.8 fL (81.0-99.0); MEAN PLATELET VOLUME 9.4 fl (7.4-10.4); PLATELET 70 x1000/uL (130-400); RED BLOOD CELL COUNT 3.38 mill/uL (4.2-5.4); RED CELL DISTRIBUTION WIDTH 16.3 % (11.6-14.6)
[2019-03-25] MEDS: OMEPRAZOLE 20MG CAPSULE EXTENDED RELEASE PO SCH (06:51)
[2019-03-25 08:00] VITALS: BP 148/70
[2019-03-25] MEDS: ALPRAZOLAM 0.5 MG TABLET PO PRN (08:40)
[2019-03-25] MEDS ORDERED: ATENOLOL 50 MG TABLET PO SCH (09:00)
[2019-03-25] MEDS ORDERED: CLOPIDOGREL 75MG TABLET PO SCH (09:00)
[2019-03-25] MEDS ORDERED: AMLODIPINE 10MG TABLET PO SCH (09:00)
[2019-03-25] MEDS ORDERED: OMEP20CA5 PO (11:01)
[2019-03-25 11:25] VITALS: BP 148/70
[2019-03-25 13:57] LABS: PLATELET ESTIMATE DECREASED
== END 2019-03-25 12:00 | disposition home or self-care (01) ==
LOC: ER 03:01 → 6WST 10:09 → EDBEDREQTM 10:21 → EDBEDREQ 10:21 → ENRESERV 14:27
PROVIDERS: ADMIT Internal Medicine; ATTEND Internal Medicine
DX: K81.9 Cholecystitis, unspecified (principal); K85.90 Acute pancreatitis without necrosis or infection, unspecified; D69.6 Thrombocytopenia, unspecified; E88.09 Other disorders of plasma-protein metabolism, not elsewhere classified; K70.30 Alcoholic cirrhosis of liver without ascites; B19.20 Unspecified viral hepatitis C without hepatic coma; E11.9 Type 2 diabetes mellitus without complications; F15.90 Other stimulant use, unspecified, uncomplicated; I10 Essential (primary) hypertension; I25.10 Atherosclerotic heart disease of native coronary artery without angina pectoris; Z85.038 Personal history of other malignant neoplasm of large intestine; Z85.05 Personal history of malignant neoplasm of liver; Z87.11 Personal history of peptic ulcer disease; Z87.442 Personal history of urinary calculi; Z87.891 Personal history of nicotine dependence; Z76.5 Malingerer [conscious simulation]; Z88.6 Allergy status to analgesic agent; Z88.0 Allergy status to penicillin; Z88.8 Allergy status to other drugs, medicaments and biological substances; Z91.041 Radiographic dye allergy status; Z91.013 Allergy to seafood; Z79.01 Long term (current) use of anticoagulants; Z79.899 Other long term (current) drug therapy
CPT/HCPCS: 36415; 71045; 76700; 78582; 80061; 80076; 80305; 80320; 82105; 82248; 82378; 83735; 83880; 84100; 84443; 84484; 86301; 93005; 93970; 99285; A9558; C1893; J1200; J2060; J2270; J7030; G0480